=== PATIENT | female | born 1930 | race Caucasian/White ===

== ENCOUNTER 2016-10-30 12:27 | Emergency (ER) | payer MEDICARE, OTHER ==
[2016-10-30] MEDS ORDERED: Sodium Chloride 0.9% 10 ML Syringe FLUSH PRN (12:32)
[2016-10-30] MEDS ORDERED: Nitroglycerin 0.4 MG Tab.SL SL ONE (12:42)
--- NOTE | 2016-10-30 13:17 | CR ---
Portable chest Comparison: March 2013. The patient has known chronic interstitial fibrosis. The interstitial markings have increased since the prior study. There is cardiac enlargement. There is mild vascular engorgement. There are no pleu ral effusions. Impression: 1. Progression of interstitial fibrosis. Superimposed interstitial edema with CHF cannot be excluded .
--- NOTE | 2016-10-30 13:56 | EDM.PDOC ---
ED HPI GENERAL MEDICAL PROBLEM - General Chief Complaint: Cardiovascular Problem Stated Complaint: CHEST PAIN/PRESSURE Time Seen by Provider: 10/30/16 13:51 Source of Information: Reports: Patient, Family, Old Records History Limitations: Reports: No Limitations - History of Present Illness INITIAL COMMENTS - FREE TEXT/NARRATIVE: pt had an episode of severe left sided chest pain last nite. She has been having some chest pain for the last 10days. It has never been as severe as last nite. Onset: Today Duration: Hour(s):, Other (pt woke up with severe pain in th left ches. At this time her pain is just a slight pressure/ ) Location: Reports: Chest Quality: Reports: Pressure Severity: Mild Associated Symptoms: Reports: Shortness of Breath, Other ( chest pressure) - Related Data Allergies Allergy/AdvReac Type Severity Reaction Status Date / Time amoxicillin [Amoxicillin] Allergy Hives Verified 03/23/13 11:53 metronidazole [From Flagyl] Allergy Abdominal Verified 03/23/13 11:53 Pain Metronidazole HCl Allergy Abdominal Verified 03/23/13 11:53 [From Flagyl] Pain Penicillins Allergy Rash Verified 03/23/13 11:53 Sulfa (Sulfonamide Allergy Hives Verified 03/23/13 11:53 Antibiotics) nitroglycerin AdvReac Headache Verified 03/23/13 13:05 Home Meds: Home Meds Atenolol [Tenormin] 50 mg PO DAILY 03/23/13 [History] Losartan Potassium 50 mg PO DAILY 10/30/16 [History] Past Medical History Cardiovascular History: Reports: Hypertension Respiratory History: Reports: Pneumonia, 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: Musculoskeletal History: Reports: Other (See Below) Other Musculoskeletal History: scolosis Hematologic History: Reports: Anemia - Infectious Disease History Infectious Disease History: Reports: Chicken Pox, Measles, Mumps - Past Surgical History HEENT Surgical History: Reports: Cataract Surgery GI Surgical History: Reports: Appendectomy, Cholecystectomy, Hernia Repair/Other Female Surgical History: Reports: Hysterectomy, Other (See Below) Other Female Surgeries/Procedures: "cleaned out urinary tubes" Social & Family History - Tobacco Use Smoking Status *Q: Never Smoker Second Hand Smoke Exposure: No - Caffeine Use Caffeine Use: Reports: Coffee - Alcohol Use Days Per Week of Alcohol Use: 0 - Recreational Drug Use Recreational Drug Use: No ED ROS GENERAL - Review of Systems Review Of Systems: See Below Constitutional: Reports: No Symptoms HEENT: Reports: No Symptoms Respiratory: Reports: Shortness of Breath, Other ( breathing has been more difficult in the last 10 days, She has had slight leg swelling. ) Cardiovascular: Reports: Chest Pain, Dyspnea on Exertion, Orthopnea Endocrine: Reports: No Symptoms GI/Abdominal: Reports: No Symptoms : Reports: No Symptoms Musculoskeletal: Reports: No Symptoms Skin: Reports: No Symptoms ED EXAM, GENERAL - Physical Exam Exam: See Below Free Text/Narrative:: pt arrived with a history of left sided chest pain. She has had increased sob. She had a abnormal ekg at the clinic today. She has a history of cad, interstial pulmomnary disease, . Exam Limited By: No Limitations General Appearance: Alert, Mild Distress Ears: Normal TMs Nose: Normal Inspection Throat/Mouth: Normal Inspection Head: Atraumatic Neck: Normal Inspection Respiratory/Chest: Decreased Breath Sounds, Rales, Wheezing Cardiovascular: Regular Rate, Rhythm, No Murmur GI/Abdominal: Soft, Non-Tender (Female) Exam: Deferred Rectal (Female) Exam: Deferred Back Exam: Normal Inspection Extremities: Pedal Edema Neurological: Alert, Oriented, Normal Cognition Course - Vital Signs Last Recorded V/S: Last Vital Signs Temp 36.4 C 10/30/16 12:34 Pulse 96 10/30/16 12:34 Resp 16 10/30/16 12:34 BP 185/76 H 10/30/16 12:34 Pulse Ox 95 10/30/16 12:34 - Orders/Labs/Meds Orders: Active Orders 24 hr Category Date Time Status EKG Documentation Completion [RC] ASDIRECTED Care 10/30/16 12:30 Active CULTURE URINE [RM] Stat Lab 10/30/16 13:44 Uncollected Sodium Chloride 0.9% [Saline Flush] Med 10/30/16 12:32 Active 10 ml FLUSH ASDIRECTED PRN Saline Lock Insert [OM.PC] Routine Oth 10/30/16 12:32 Ordered EKG 12 Lead [EK] Routine Ther 10/30/16 12:30 Ordered Medication Orders Sodium Chloride (Saline Flush) 10 ml FLUSH ASDIRECTED PRN PRN Reason: Keep Vein Open Last Admin: 10/30/16 12:54 Dose: 10 ml Labs: Laboratory Tests 0710/30/16 10/30/16 Range/Units 12:50 12:55 12:55 WBC 6.4 (4.5-11.0) K/uL RBC 4.79 (3.30-5.50) M/uL Hgb 13.8 (12.0-15.0) g/dL Hct 41.4 (36.0-48.0) % MCV 86 (80-98) fL MCH 29 (27-31) pg MCHC 33 (32-36) % Plt Count 220 (150-400) K/uL Neut % (Auto) 62 (36-66) % Lymph % (Auto) 27 (24-44) % [place] % (Auto) 8 H (2-6) % Eos % (Auto) 2 (2-4) % Baso % (Auto) 1 (0-1) % Sodium (140-148) mmol/L Potassium (3.6-5.2) mmol/L Chloride (100-108) mmol/L Carbon Dioxide (21-32) mmol/L Anion Gap (5.0-14.0) mmol/L BUN (7-18) mg/dL Creatinine (0.6-1.0) mg/dL Est Cr Clr Drug Dosing mL/min Estimated GFR (MDRD) (>60) Glucose (74-106) mg/dL Calcium (8.5-10.1) mg/dL Total Bilirubin (0.2-1.0) mg/dL AST (15-37) U/L ALT (12-78) U/L Alkaline Phosphatase (46-116) U/L Creatine Kinase (26-192) U/L Troponin I 0.476 H* (0.000-0.056) ng/mL [id number] Pept 29091 H (5-450) pg/mL Total Protein (6.4-8.2) g/dL Albumin (3.4-5.0) g/dL Globulin (2.3-3.5) g/dL Albumin/Globulin Ratio (1.2-2.2) Urine Color Urine Appearance Urine pH (4.5-8.0) Ur Specific [place] (1.008-1.030) Urine Protein (NEGATIVE) mg/dL Urine Glucose (UA) (NEGATIVE) mg/dL Urine Ketones (NEGATIVE) mg/dL Urine Occult Blood (NEGATIVE) Urine Nitrite (NEGATIVE) Urine Bilirubin (NEGATIVE) Urine Urobilinogen (NORMAL) mg/dL Ur Leukocyte Esterase (NEGATIVE) Urine RBC (0-5) Urine WBC (0-5) Ur Epithelial Cells Amorphous Sediment Urine Bacteria Urine Mucus 10/30/16 10/30/16 Range/Units 12:55 13:31 WBC (4.5-11.0) K/uL RBC (3.30-5.50) M/uL Hgb (12.0-15.0) g/dL Hct (36.0-48.0) % MCV (80-98) fL MCH (27-31) pg MCHC (32-36) % Plt Count (150-400) K/uL Neut % (Auto) (36-66) % Lymph % (Auto) (24-44) % [place] % (Auto) (2-6) % Eos % (Auto) (2-4) % Baso % (Auto) (0-1) % Sodium 133 L (140-148) mmol/L Potassium 3.7 (3.6-5.2) mmol/L Chloride 97 L (100-108) mmol/L Carbon Dioxide 31 (21-32) mmol/L Anion Gap 8.7 (5.0-14.0) mmol/L BUN 16 (7-18) mg/dL Creatinine 1.0 (0.6-1.0) mg/dL Est Cr Clr Drug Dosing 29.54 mL/min Estimated GFR (MDRD) 53 L (>60) Glucose 135 H (74-106) mg/dL Calcium 8.9 (8.5-10.1) mg/dL Total Bilirubin 0.6 (0.2-1.0) mg/dL AST 28 (15-37) U/L ALT 18 (12-78) U/L Alkaline Phosphatase 83 (46-116) U/L Creatine Kinase 64 (26-192) U/L Troponin I (0.000-0.056) ng/mL Okv-E-Pjzbqsvfneo Pept (5-450) pg/mL Total Protein 7.6 (6.4-8.2) g/dL Albumin 3.3 L (3.4-5.0) g/dL Globulin 4.3 H (2.3-3.5) g/dL Albumin/Globulin Ratio 0.8 L (1.2-2.2) Urine Color Yellow Urine Appearance Cloudy Urine pH 8.0 (4.5-8.0) Ur Specific [place] 1.010 (1.008-1.030) Urine Protein Negative (NEGATIVE) mg/dL Urine Glucose (UA) Normal (NEGATIVE) mg/dL Urine Ketones Negative (NEGATIVE) mg/dL Urine Occult Blood Moderate (NEGATIVE) Urine Nitrite Negative (NEGATIVE) Urine Bilirubin Negative (NEGATIVE) Urine Urobilinogen Normal (NORMAL) mg/dL Ur Leukocyte Esterase Large (NEGATIVE) Urine RBC 5-10 H (0-5) Urine WBC 50-75 H (0-5) Ur Epithelial Cells Few Amorphous Sediment Rare Urine Bacteria Few Urine Mucus Rare Meds: Medications Generic Name Dose Route Start Last Admin Trade Name Freq PRN Reason Stop Dose Admin Sodium Chloride 10 ml 10/30/16 12:32 10/30/16 12:54 Saline Flush FLUSH 10 ml ASDIRECTED PRN Administration Keep Vein Open Discontinued Medications Generic Name Dose Route Start Last Admin Trade Name Freq PRN Reason Stop Dose Admin Nitroglycerin 0.4 mg 10/30/16 12:42 Nitrostat SL 10/30/16 12:43 ONETIME ONE - Re-Assessments/Exams Free Text/Narrative Re-Assessment/Exam: 10/30/16 14:06 pt was found to have acute ekg changes. She was given baby asa at the clinic. Pt does not do well with nitro so that was not given because she just had slight pressure. 10/30/16 14:14 pt had a trop of greater than .4 Her chest xray showed chf. Her bnp is high. Departure - Departure Time of Disposition: 14:16 Disposition: DC/Tfer to Acute Hospital 02 Reason for Transfer *Q: Primary PCI Indicated Condition: Fair Clinical Impression: Acute anteroseptal myocardial infarction, CHF (congestive heart failure), Interstitial lung disease, CAD (coronary artery disease), Diastolic dysfunction Forms: ED Department Discharge Care Plan Goals: transfer to [facility]. - My Orders Last 24 Hours: My Active Orders 10/30/16 12:30 EKG Documentation Completion [RC] ASDIRECTED EKG 12 Lead [EK] Routine 10/30/16 12:32 Sodium Chloride 0.9% [Saline Flush] 10 ml FLUSH ASDIRECTED PRN Saline Lock Insert [OM.PC] Routine 10/30/16 13:44 CULTURE URINE [RM] Stat - Assessment/Plan Last 24 Hours: My Active Orders 10/30/16 12:30 EKG Documentation Completion [RC] ASDIRECTED EKG 12 Lead [EK] Routine 10/30/16 12:32 Sodium Chloride 0.9% [Saline Flush] 10 ml FLUSH ASDIRECTED PRN Saline Lock Insert [OM.PC] Routine 10/30/16 13:44 CULTURE URINE [RM] Stat
[2016-10-30] MEDS ORDERED: Furosemide 40 MG/4 ML VIAL IVPUSH ONE (14:03)
[2016-10-30] MEDS ORDERED: Clopidogrel 75 MG Tab PO ONE (14:04)
[2016-10-30] MEDS ORDERED: Heparin Sodium 5,000 Units/ML Vial IVPUSH ONE (14:05)
[2016-10-30 14:50] VITALS: BP 190/114
== END 2016-10-30 14:45 ==
LOC: JP.ED 12:27
DX: I21.09 ST elevation (STEMI) myocardial infarction involving other coronary artery of anterior wall (principal); I10 Essential (primary) hypertension; J84.9 Interstitial pulmonary disease, unspecified; I25.10 Atherosclerotic heart disease of native coronary artery without angina pectoris; I50.30 Unspecified diastolic (congestive) heart failure; Z88.8 Allergy status to other drugs, medicaments and biological substances; Z79.899 Other long term (current) drug therapy
CPT/HCPCS: 36415; 71010; 80053; 81001; 82550; 83880; 84484; 85025; 85730; 87086; 93005; A9270; J1644; J1940; J7050; 87088; 87186; 93010; 96374; 96375; 99285; 99285-25

== ENCOUNTER 2016-11-08 07:51 | Emergency (ER) | payer MEDICARE, OTHER ==
[2016-11-08] MEDS ORDERED: HYDROmorphone 0.5 MG/0.5 ML Syringe IM ONE (08:27)
--- NOTE | 2016-11-08 08:33 | EDM.PDOC ---
ED HPI GENERAL MEDICAL PROBLEM - General Chief Complaint: Upper Extremity Injury/Pain Stated Complaint: RT ARM PAIN Time Seen by Provider: 11/08/16 08:28 Source of Information: Reports: Patient, Family History Limitations: Reports: No Limitations - History of Present Illness INITIAL COMMENTS - FREE TEXT/NARRATIVE: pt has severe pain in the rt wrist and arm. She had a angiogram 1 week ago. She was in the hosp until sat. She was doing well until this started in the nite. Onset: Today Duration: Hour(s): Location: Reports: Upper Extremity, Right Associated Symptoms: Reports: Shortness of Breath Right Arm Pain Score (Numeric/FACES): 10 - Related Data Allergies Allergy/AdvReac Type Severity Reaction Status Date / Time amoxicillin [Amoxicillin] Allergy Hives Verified 11/08/16 08:07 metronidazole [From Flagyl] Allergy Abdominal Verified 11/08/16 08:07 Pain Metronidazole HCl Allergy Abdominal Verified 11/08/16 08:07 [From Flagyl] Pain Penicillins Allergy Rash Verified 11/08/16 08:07 Sulfa (Sulfonamide Allergy Hives Verified 11/08/16 08:07 Antibiotics) nitroglycerin AdvReac Headache Verified 11/08/16 08:07 Home Meds: Home Meds Aspirin [Halfprin] 1 tab PO DAILY 11/08/16 [History] Furosemide 1 tab PO DAILY 11/08/16 [History] Metoprolol Succinate [Toprol XL] 1 tab PO DAILY 11/08/16 [History] Ticagrelor [Brilinta] 1 tab PO BID 11/08/16 [History] atorvaSTATin [Lipitor] 1 tab PO BEDTIME 11/08/16 [History] Past Medical History HEENT History: Reports: Cataract Cardiovascular History: Reports: CAD, High Cholesterol, Hypertension, [place], Stents Respiratory History: Reports: Pneumonia, 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: , 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 Musculoskeletal History: Reports: Other (See Below) Other Musculoskeletal History: scoliosis Hematologic History: Reports: Anemia - Infectious Disease History Infectious Disease History: Reports: Chicken Pox, Measles, Mumps - Past Surgical History HEENT Surgical History: Reports: Cataract Surgery Cardiovascular Surgical History: Reports: Coronary Artery Stent GI Surgical History: Reports: Appendectomy, Cholecystectomy, Hernia Repair/Other Female Surgical History: Reports: Hysterectomy, Tubal Ligation, Other (See Below) Other Female Surgeries/Procedures: "cleaned out urinary tubes" Social & Family History - Tobacco Use Smoking Status *Q: Never Smoker Second Hand Smoke Exposure: No - Caffeine Use Caffeine Use: Reports: Coffee - Alcohol Use Days Per Week of Alcohol Use: 0 - Recreational Drug Use Recreational Drug Use: No Review of Systems - Review of Systems Review Of Systems: See Below Constitutional: Reports: No Symptoms Eyes: Reports: No Symptoms Ears: Reports: No Symptoms Nose: Reports: No Symptoms Mouth/Throat: Reports: No Symptoms Respiratory: Reports: Shortness of Breath, Other (pt has not had chest pain but has been very sob since she had the stents plced. ) Cardiovascular: Reports: No Symptoms GI/Abdominal: Reports: No Symptoms Genitourinary: Reports: No Symptoms Musculoskeletal: Reports: No Symptoms, Other (pt has severe pain in the rt arm which started in the nite. ) Skin: Reports: No Symptoms Neurological: Reports: No Symptoms ED EXAM, GENERAL - Physical Exam Exam: See Below Free Text/Narrative:: pt has severe pain in the left arm which started in the nite. This is at the wrist level. She had a IV started at the wrist about 1 week ago when she had stents placed. She had no trouble until in the nite. Exam Limited By: No Limitations General Appearance: Alert, Moderate Distress Ears: Normal TMs Nose: Normal Inspection Throat/Mouth: Normal Inspection Head: Atraumatic Neck: Normal Inspection Respiratory/Chest: Rales, Other ( just a few rales at the lung bases. ) Cardiovascular: Regular Rate, Rhythm GI/Abdominal: Soft, Non-Tender (Female) Exam: Deferred Rectal (Female) Exam: Deferred Back Exam: Normal Inspection Extremities: Other ( rt arm is quite bruised. She has minimal swelling. She has a good pulse at the wrist level. ) Neurological: Alert, Oriented, Normal Cognition Course - Vital Signs Last Recorded V/S: Last Vital Signs Temp 36.7 C 11/08/16 09:40 Pulse 79 11/08/16 10:08 Resp 16 11/08/16 09:40 BP 123/60 11/08/16 10:08 Pulse Ox 92 L 11/08/16 10:08 - Orders/Labs/Meds Orders: Active Orders 24 hr Category Date Time Status VL Duplex Upr Ext Veins Ltd Rt [US] Stat Exams 11/08/16 08:25 Taken Labs: Laboratory Tests 11/08/16 11/08/16 Range/Units 09:25 09:25 WBC 10.4 (4.5-11.0) K/uL RBC 4.67 (3.30-5.50) M/uL Hgb 13.5 (12.0-15.0) g/dL Hct 39.3 (36.0-48.0) % MCV 84 (80-98) fL MCH 29 (27-31) pg MCHC 34 (32-36) % Plt Count 270 (150-400) K/uL Neut % (Auto) 78 H (36-66) % Lymph % (Auto) 11 L (24-44) % [place] % (Auto) 9 H (2-6) % Eos % (Auto) 1 L (2-4) % Baso % (Auto) 1 (0-1) % Sodium 129 L (140-148) mmol/L Potassium 3.7 (3.6-5.2) mmol/L Chloride 93 L (100-108) mmol/L Carbon Dioxide 29 (21-32) mmol/L Anion Gap 10.7 (5.0-14.0) mmol/L BUN 21 H (7-18) mg/dL Creatinine 1.1 H (0.6-1.0) mg/dL Est Cr Clr Drug Dosing 26.86 mL/min Estimated GFR (MDRD) 47 L (>60) Glucose 105 (74-106) mg/dL Calcium 9.0 (8.5-10.1) mg/dL Total Bilirubin 1.0 D (0.2-1.0) mg/dL AST 28 (15-37) U/L ALT 28 (12-78) U/L Alkaline Phosphatase 83 (46-116) U/L Total Protein 7.5 (6.4-8.2) g/dL Albumin 2.9 L (3.4-5.0) g/dL Globulin 4.6 H (2.3-3.5) g/dL Albumin/Globulin Ratio 0.6 L (1.2-2.2) Meds: Medications Discontinued Medications Generic Name Dose Route Start Last Admin Trade Name Freq PRN Reason Stop Dose Admin Hydrocodone Bitart/Acetaminophen 1 tab 11/08/16 09:46 11/08/16 10:05 [place] 325-5 Mg PO 11/08/16 09:47 1 tab ONETIME ONE Administration Furosemide 60 mg 11/08/16 09:45 Lasix IVPUSH 11/08/16 09:46 ONETIME ONE Furosemide 60 mg 11/08/16 09:58 11/08/16 10:06 Lasix IM 11/08/16 09:59 60 mg ONETIME ONE Administration Hydromorphone HCl 0.5 mg 11/08/16 08:27 11/08/16 08:47 Dilaudid IM 11/08/16 08:28 0.5 mg ONETIME ONE Administration - Re-Assessments/Exams Free Text/Narrative Re-Assessment/Exam: 11/08/16 09:37 us was done on the pt which id not reveal a clot in the arm. She does have an excellent pulse. She is very sensitive in the iv start site. She has some numbness in her fingers. It would appear there is some swelling around a nerve. 11/08/16 09:38 11/08/16 10:48 Pt had extra fluid in her chest. She has been quite sob. She was given lasix 60mg im. She has been on 40 mg daily. She has a follow up appt in [place] on saturday. Departure - Departure Time of Disposition: 10:49 Disposition: Home, Self-Care 01 Condition: Fair Clinical Impression: Irritation of radial nerve, CHF (congestive heart failure) - Discharge Information Referrals: Delroy Ny PA-C [Primary Care Provider] - Forms: ED Department Discharge Care Plan Goals: Soak the wrist tid and do range of motion of the hand--= soak for 20min each time. Increase lasix to 1 and1/2 tablets each morning starting tomorrow--60 mg. keep follow up appt saturday in [facility] 1/2 to 1 tab q6h as needed for pain, use prunes and stool softners to prevent constipation. - My Orders Last 24 Hours: My Active Orders 11/08/16 08:25 VL Duplex Upr Ext Veins Ltd Rt [US] Stat - Assessment/Plan Last 24 Hours: My Active Orders 11/08/16 08:25 VL Duplex Upr Ext Veins Ltd Rt [US] Stat
[2016-11-08] MEDS ORDERED: Furosemide 40 MG/4 ML VIAL IVPUSH ONE (09:45)
[2016-11-08] MEDS ORDERED: Acetaminophen/HYDROcodone 325-5 MG Tab PO ONE (09:46)
--- NOTE | 2016-11-08 09:46 | CR ---
Mild cardio mainly. Low lung volumes. No definite focal consolidation. Mild linear interstitial proc ess is increased. Findings may indicate mild interstitial edema. Fibrosis could contribute.
[2016-11-08] MEDS ORDERED: Furosemide 40 MG/4 ML VIAL IM ONE (09:58)
[2016-11-08 10:08] VITALS: BP 123/60
--- NOTE | 2016-11-08 12:40 | US ---
No evidence for DVT right upper extremity. Basilic and brachial veins Limited.
== END 2016-11-08 11:28 | disposition home or self-care (01) ==
LOC: JP.ED 07:51
DX: G56.31 Lesion of radial nerve, right upper limb (principal); I11.0 Hypertensive heart disease with heart failure; I50.9 Heart failure, unspecified; I25.2 Old myocardial infarction; I25.10 Atherosclerotic heart disease of native coronary artery without angina pectoris; E78.00 Pure hypercholesterolemia, unspecified; Z87.01 Personal history of pneumonia (recurrent); Z86.2 Personal history of diseases of the blood and blood-forming organs and certain disorders involving the immune mechanism; Z95.5 Presence of coronary angioplasty implant and graft; Z90.49 Acquired absence of other specified parts of digestive tract; Z98.890 Other specified postprocedural states; Z79.82 Long term (current) use of aspirin; Z79.899 Other long term (current) drug therapy; Z88.1 Allergy status to other antibiotic agents; Z88.0 Allergy status to penicillin; Z88.2 Allergy status to sulfonamides; Z88.8 Allergy status to other drugs, medicaments and biological substances
CPT/HCPCS: 36415; 71010; 80053; 85025; 93971; 96372; 96374; 99284; A9270; J1170; J1940; 99283

== ENCOUNTER 2017-12-31 18:11 | Inpatient (IN) | payer MEDICARE, OTHER ==
[2017-12-31] MEDS ORDERED: Albuterol 0.083% 2.5 MG/3 ML Neb Soln NEB ONE (18:46)
[2017-12-31] MEDS ORDERED: Furosemide 40 MG/4 ML VIAL IVPUSH ONE (18:57)
--- NOTE | 2017-12-31 19:01 | EDM.PDOC ---
ED HPI GENERAL MEDICAL PROBLEM - General Chief Complaint: Respiratory Problem Stated Complaint: SOB Time Seen by Provider: 12/31/17 19:01 Source of Information: Reports: Patient History Limitations: Reports: No Limitations - History of Present Illness INITIAL COMMENTS - FREE TEXT/NARRATIVE: pt arrived with sob and difficulty sleeping at nite. She states this started last nite and has gotten progressively worse. She has not had chest pain. She has noted increased swelling in her ankles and legs. She ran out of her lasix about 5 days ago. Onset: Today (sob stared yesterday. ), Other ( started yesterday. ) Duration: Hour(s): Location: Reports: Chest, Lower Extremity, Left, Lower Extremity, Right Associated Symptoms: Reports: Cough, Fever/Chills, Shortness of Breath Denies Pain Score (Numeric/FACES): 0 - Related Data Allergies Allergy/AdvReac Type Severity Reaction Status Date / Time amoxicillin [Amoxicillin] Allergy Hives Verified 12/31/17 18:16 metronidazole [From Flagyl] Allergy Abdominal Verified 12/31/17 18:16 Pain Metronidazole HCl Allergy Abdominal Verified 12/31/17 18:16 [From Flagyl] Pain Penicillins Allergy Rash Verified 12/31/17 18:16 Sulfa (Sulfonamide Allergy Hives Verified 12/31/17 18:16 Antibiotics) nitroglycerin AdvReac Headache Verified 12/31/17 18:16 Home Meds: Home Meds Aspirin [Halfprin] 1 tab PO DAILY 11/08/16 [History] Clopidogrel Bisulfate [Clopidogrel] 1 tab PO DAILY 12/31/17 [History] Losartan [Cozaar] 1 tab PO BEDTIME 12/31/17 [History] predniSONE [Prednisone] 1 tab PO DAILY 12/31/17 [History] Past Medical History HEENT History: Reports: Cataract Cardiovascular History: Reports: CAD, High Cholesterol, Hypertension, MA, Stents Respiratory History: Reports: Pneumonia, Recurrent [employer] History: Reports: , Spontaneous Musculoskeletal History: Reports: Other (See Below) Other Musculoskeletal History: scoliosis Hematologic History: Reports: Anemia - Infectious Disease History Infectious Disease History: Reports: Chicken Pox, Measles, Mumps - Past Surgical History HEENT Surgical History: Reports: Cataract Surgery Cardiovascular Surgical History: Reports: Coronary Artery Stent GI Surgical History: Reports: Appendectomy, Cholecystectomy, Hernia Repair/Other Female Surgical History: Reports: Hysterectomy, Tubal Ligation, Other (See Below) Other Female Surgeries/Procedures: "cleaned out urinary tubes" Social & Family History - Tobacco Use Smoking Status *Q: Never Smoker Second Hand Smoke Exposure: No - Caffeine Use Caffeine Use: Reports: Coffee - Recreational Drug Use Recreational Drug Use: No ED ROS GENERAL - Review of Systems Review Of Systems: See Below Constitutional: Reports: Fever, Chills, Diaphoresis HEENT: Reports: No Symptoms Respiratory: Reports: Shortness of Breath, Cough, Other (pt has no chest pain.) Cardiovascular: Reports: No Symptoms, Dyspnea on Exertion, Edema Endocrine: Reports: No Symptoms GI/Abdominal: Reports: No Symptoms : Reports: No Symptoms Musculoskeletal: Reports: No Symptoms Skin: Reports: No Symptoms Neurological: Reports: No Symptoms Psychiatric: Reports: Anxiety ED EXAM, GENERAL - Physical Exam Exam: See Below Free Text/Narrative:: pt arrived with sob and increased ankle swelling. She did spike a temp today. She has no pain with deep breathing. Exam Limited By: No Limitations General Appearance: Alert, Anxious, Moderate Distress, Other (o2 sats are low) Ears: Normal TMs Nose: Normal Inspection Throat/Mouth: Normal Inspection Head: Atraumatic Neck: Normal Inspection Respiratory/Chest: Decreased Breath Sounds, Crackles, Rales, Other ( rapid resp. ) Cardiovascular: Regular Rate, Rhythm GI/Abdominal: Soft, Non-Tender (Female) Exam: Deferred Rectal (Female) Exam: Deferred Back Exam: Normal Inspection Extremities: Pedal Edema, Other (pt has plus 2 pitting edema. ) Neurological: Alert, Oriented, Normal Cognition Course - Vital Signs Last Recorded V/S: Last Vital Signs Temp 38.7 C H 12/31/17 18:35 Pulse 101 H 12/31/17 18:35 Resp 32 H 12/31/17 18:35 BP 141/89 H 12/31/17 19:12 Pulse Ox 91 L 12/31/17 18:35 - Orders/Labs/Meds Orders: Active Orders 24 hr Category Date Time Status RT Aerosol Therapy [RC] ASDIRECTED Care 12/31/17 18:46 Active Chest 1V Frontal [CR] Stat Exams 12/31/17 18:31 Taken CULTURE BLOOD [BC] Urgent Lab 12/31/17 18:50 Received CULTURE BLOOD [BC] Urgent Lab 12/31/17 18:55 Received UA W/MICROSCOPIC [URIN] Urgent Lab 12/31/17 18:29 Ordered Sodium Chloride 0.9% [Saline Flush] Med 12/31/17 18:47 Active 10 ml FLUSH ASDIRECTED PRN Blood Culture x2 Reflex Set [OM.PC] Urgent Oth 12/31/17 18:32 Ordered Saline Lock Insert [OM.PC] Routine Oth 12/31/17 18:47 Ordered Medication Orders Sodium Chloride (Saline Flush) 10 ml FLUSH ASDIRECTED PRN PRN Reason: Keep Vein Open Last Admin: 12/31/17 19:14 Dose: 10 ml Labs: Laboratory Tests 12/31/17 12/31/17 12/31/17 Range/Units 18:29 18:40 18:40 WBC 6.7 (4.5-11.0) K/uL RBC 4.66 (3.30-5.50) M/uL Hgb 12.8 (12.0-15.0) g/dL Hct 39.0 (36.0-48.0) % MCV 84 (80-98) fL MCH 28 (27-31) pg MCHC 33 (32-36) % Plt Count 278 (150-400) K/uL Neut % (Auto) 65 (36-66) % Lymph % (Auto) 23 L (24-44) % [place] % (Auto) 9 H (2-6) % Eos % (Auto) 3 (2-4) % Baso % (Auto) 0 (0-1) % Puncture Site Rt radial ABG pH 7.463 H (7.350-7.450) ABG pCO2 35.3 (35.0-42.0) mmHg ABG pO2 74.2 L (75.0-100.0) mmHg ABG HCO3 24.9 (22.0-26.0) mmol/L ABG Total CO2 22.0 (21.0-25.0) mmol/L ABG O2 Saturation 95.5 (95.0-98.0) % ABG O2 Content 17.0 (15.0-23.0) %vol ABG Base Excess 1.9 mm/L ABG Hemoglobin 12.9 (12.0-16.0) g/dL ABG Oxyhemoglobin 94.0 % ABG Carboxyhemoglobin 1.1 (0.0-1.6) % ABG Methemoglobin 0.5 % Estuardo Test Pass O2 Delivery Device Nasal cannula Oxygen Flow Rate L Sodium 131 L (140-148) mmol/L Potassium 4.2 (3.6-5.2) mmol/L Chloride 95 L (100-108) mmol/L Carbon Dioxide 29 (21-32) mmol/L Anion Gap 11.2 (5.0-14.0) mmol/L BUN 21 H (7-18) mg/dL Creatinine 1.1 H (0.6-1.0) mg/dL Est Cr Clr Drug Dosing 26.37 mL/min Estimated GFR (MDRD) 47 L (>60) Glucose 121 H (74-106) mg/dL Calcium 8.7 (8.5-10.1) mg/dL Total Bilirubin 0.5 (0.2-1.0) mg/dL AST 21 (15-37) U/L ALT 19 (12-78) U/L Alkaline Phosphatase 67 (46-116) U/L C-Reactive Protein (0.0-0.3) mg/dL NT-Pro-B Natriuret Pep (5-450) pg/mL Total Protein 6.4 (6.4-8.2) g/dL Albumin 2.9 L (3.4-5.0) g/dL Globulin 3.5 (2.3-3.5) g/dL Albumin/Globulin Ratio 0.8 L (1.2-2.2) 12/31/17 12/31/17 Range/Units 18:45 18:49 WBC (4.5-11.0) K/uL RBC (3.30-5.50) M/uL Hgb (12.0-15.0) g/dL Hct (36.0-48.0) % MCV (80-98) fL MCH (27-31) pg MCHC (32-36) % Plt Count (150-400) K/uL Neut % (Auto) (36-66) % Lymph % (Auto) (24-44) % [place] % (Auto) (2-6) % Eos % (Auto) (2-4) % Baso % (Auto) (0-1) % Puncture Site ABG pH (7.350-7.450) ABG pCO2 (35.0-42.0) mmHg ABG pO2 (75.0-100.0) mmHg ABG HCO3 (22.0-26.0) mmol/L ABG Total CO2 (21.0-25.0) mmol/L ABG O2 Saturation (95.0-98.0) % ABG O2 Content (15.0-23.0) %vol ABG Base Excess mm/L ABG Hemoglobin (12.0-16.0) g/dL ABG Oxyhemoglobin % ABG Carboxyhemoglobin (0.0-1.6) % ABG Methemoglobin % Estuardo Test O2 Delivery Device Oxygen Flow Rate L Sodium (140-148) mmol/L Potassium (3.6-5.2) mmol/L Chloride (100-108) mmol/L Carbon Dioxide (21-32) mmol/L Anion Gap (5.0-14.0) mmol/L BUN (7-18) mg/dL Creatinine (0.6-1.0) mg/dL Est Cr Clr Drug Dosing mL/min Estimated GFR (MDRD) (>60) Glucose (74-106) mg/dL Calcium (8.5-10.1) mg/dL Total Bilirubin (0.2-1.0) mg/dL AST (15-37) U/L ALT (12-78) U/L Alkaline Phosphatase (46-116) U/L C-Reactive Protein 0.94 H (0.0-0.3) mg/dL NT-Pro-B Natriuret Pep 77027 H (5-450) pg/mL Total Protein (6.4-8.2) g/dL Albumin (3.4-5.0) g/dL Globulin (2.3-3.5) g/dL Albumin/Globulin Ratio (1.2-2.2) Meds: Medications Generic Name Dose Route Start Last Admin Trade Name Freq PRN Reason Stop Dose Admin Sodium Chloride 10 ml 12/31/17 18:47 12/31/17 19:14 Saline Flush FLUSH 10 ml ASDIRECTED PRN Administration Keep Vein Open Discontinued Medications Generic Name Dose Route Start Last Admin Trade Name Freq PRN Reason Stop Dose Admin Albuterol 2.5 mg 12/31/17 18:46 12/31/17 19:11 Proventil Neb Soln NEB 12/31/17 18:47 2.5 mg ONETIME ONE Administration Furosemide 60 mg 12/31/17 18:57 12/31/17 19:12 Lasix IVPUSH 12/31/17 18:58 60 mg ONETIME ONE Administration - Re-Assessments/Exams Free Text/Narrative Re-Assessment/Exam: 12/31/17 19:26 chest xray shows alot of extra fluid. She does have a fever but no elevated wbc. Her bnp is greater than 13,000. Pt was given 60 mg of lasix iv. A banks cath was inserted. 12/31/17 19:27 Departure - Departure Time of Disposition: 19:28 Disposition: Admitted As Inpatient 67 Condition: Fair Clinical Impression: CHF (congestive heart failure), Pneumonia - Discharge Information Referrals: Denise Salguero MD [Primary Care Provider] - Forms: ED Department Discharge Care Plan Goals: admit to [facility] and Dr Soto. - My Orders Last 24 Hours: My Active Orders 12/31/17 18:29 UA W/MICROSCOPIC [URIN] Urgent 12/31/17 18:31 Chest 1V Frontal [CR] Stat 12/31/17 18:32 Blood Culture x2 Reflex Set [OM.PC] Urgent 12/31/17 18:46 RT Aerosol Therapy [RC] ASDIRECTED 12/31/17 18:47 Sodium Chloride 0.9% [Saline Flush] 10 ml FLUSH ASDIRECTED PRN Saline Lock Insert [OM.PC] Routine 12/31/17 18:50 CULTURE BLOOD [BC] Urgent 12/31/17 18:55 CULTURE BLOOD [BC] Urgent - Assessment/Plan Last 24 Hours: My Active Orders 12/31/17 18:29 UA W/MICROSCOPIC [URIN] Urgent 12/31/17 18:31 Chest 1V Frontal [CR] Stat 12/31/17 18:32 Blood Culture x2 Reflex Set [OM.PC] Urgent 12/31/17 18:46 RT Aerosol Therapy [RC] ASDIRECTED 12/31/17 18:47 Sodium Chloride 0.9% [Saline Flush] 10 ml FLUSH ASDIRECTED PRN Saline Lock Insert [OM.PC] Routine 12/31/17 18:50 CULTURE BLOOD [BC] Urgent 12/31/17 18:55 CULTURE BLOOD [BC] Urgent
[2017-12-31] MEDS: Sodium Chloride 0.9% 10 ML Syringe FLUSH PRN (19:14)
[2017-12-31] MEDS ORDERED: Acetaminophen 325 MG Tab PO ONE (19:24)
[2017-12-31] MEDS ORDERED: cefTRIAXone 1 GM in Sodium Chloride 0.9% 50 ML IV ONE (20:17)
--- NOTE | 2017-12-31 20:57 | PCM.HP ---
H&P History of Present Illness - General Date of Service: 12/31/17 Admit Problem/Dx: Admission Diagnosis/Problem Admission Diagnosis/Problem Congestive heart failure Source of Information: Patient, Family (Daughter Jeanna Younger), Provider History Limitations: Reports: No Limitations - History of Present Illness Initial Comments - Free Text/Narative: Mrs. Petty arrived with sob and difficulty sleeping at nite. She states this started last night and has gotten progressively worse. She has not had chest pain. She has noted increased swelling in her ankles and legs. She ran out of her lasix about 5 days ago. Onset: sob started yesterday. Associated Symptoms: Reports: Cough, Fever/Chills, Shortness of Breath, lack of appetite, poor sleep x 2 nights Imaging: chest xray shows diffuse congestion. She does have a fever but no elevated wbc. Her Peo-BNP is greater than 13,000, given 60 mg of Lasix IV. Reynolds catheter was inserted, urinary output at 500ml clear yellow urine. plan to admit to Hospital for further care and treatment Condition: Fair Clinical Impression: CHF, Pneumonia Onset of Symptoms: Reports: Gradual Duration of Symptoms: Reports: Day(s): (two) Location: Reports: Chest, Generalized (weakness, fever, chills, poor appetite), Other (lower leg edema) Quality: Reports: Same as Previous Episode Severity: Severe Improves with: Reports: Medication (has not taken Lasix for 5 days) Worsens with: Reports: Movement Associated Symptoms: Reports: Cough, Fever/Chills, Loss of Appetite, Malaise, Shortness of Breath, Weakness Denies Pain Score (Numeric/FACES): 0 - Related Data Allergies/Adverse Reactions: Allergies Allergy/AdvReac Type Severity Reaction Status Date / Time amoxicillin [Amoxicillin] Allergy Hives Verified 12/31/17 18:16 metronidazole [From Flagyl] Allergy Abdominal Verified 12/31/17 18:16 Pain Metronidazole HCl Allergy Abdominal Verified 12/31/17 18:16 [From Flagyl] Pain Penicillins Allergy Rash Verified 12/31/17 18:16 Sulfa (Sulfonamide Allergy Hives Verified 12/31/17 18:16 Antibiotics) nitroglycerin AdvReac Headache Verified 12/31/17 18:16 Home Medications: Home Meds Aspirin [Halfprin] 1 tab PO DAILY 11/08/16 [History] Clopidogrel Bisulfate [Clopidogrel] 1 tab PO DAILY 12/31/17 [History] Losartan [Cozaar] 1 tab PO BEDTIME 12/31/17 [History] predniSONE [Prednisone] 1 tab PO DAILY 12/31/17 [History] Past Medical History HEENT History: Reports: Cataract Cardiovascular History: Reports: CAD, High Cholesterol, Hypertension, PA, Stents Respiratory History: Reports: Pneumonia, Recurrent 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: Reports: , Spontaneous Musculoskeletal History: Reports: Other (See Below) Other Musculoskeletal History: scoliosis Hematologic History: Reports: Anemia - Infectious Disease History Infectious Disease History: Reports: Chicken Pox, Measles, Mumps - Past Surgical History HEENT Surgical History: Reports: Cataract Surgery Cardiovascular Surgical History: Reports: Coronary Artery Stent GI Surgical History: Reports: Appendectomy, Cholecystectomy, Hernia Repair/Other Female Surgical History: Reports: Hysterectomy, Tubal Ligation, Other (See Below) Other Female Surgeries/Procedures: "cleaned out urinary tubes" Social & Family History - Tobacco Use Smoking Status *Q: Never Smoker Second Hand Smoke Exposure: No - Caffeine Use Caffeine Use: Reports: Coffee - Recreational Drug Use Recreational Drug Use: No - Living Situation & Occupation Living situation: Reports: , Alone Occupation: Retired ( of 66+ years in November after a lenghty illness , has 5 children, lives in [place] home across from her Daughter's [facility] Mobile home in [place], [place]. many extended family in area.) H&P Review of Systems - Review of Systems: Review Of Systems: See Below General: Reports: Fever, Chills, Malaise, Weakness, Fatigue, Night Sweats, Decreased Appetite HEENT: Reports: Glasses (for reading only) Pulmonary: Reports: Shortness of Breath, Wheezing, Cough, Sputum Cardiovascular: Reports: Dyspnea on Exertion, Orthopnea, Edema Gastrointestinal: Reports: No Symptoms Genitourinary: Reports: No Symptoms Musculoskeletal: Reports: Joint Pain (has arthritis in her joints causing discomfort), Muscle Pain Skin: Reports: No Symptoms Psychiatric: Reports: Other (reports doing well after 's , missing him, but its a comfort to her to know he is no longer suffering.) Neurological: Reports: Pre-Existing Deficit (ambulates with cane or walker due to balance issues) Hematologic/Lymphatic: Reports: No Symptoms Immunologic: Reports: No Symptoms Exam - Exam Exam: See Below - Vital Signs Vital Signs: Last Vital Signs Temp 38.7 C H 12/31/17 18:35 Pulse 89 12/31/17 19:19 Resp 24 H 12/31/17 19:19 BP 134/79 12/31/17 19:19 Pulse Ox 97 12/31/17 19:19 Weight: 53 kg - Exam Quality Assessment: Supplemental Oxygen, Urinary Catheter, DVT Prophylaxis General: Alert, Oriented, Cooperative, Mild Distress HEENT: PERRLA, Conjunctiva Clear, EACs Clear, EOMI, Hearing Intact, Mucosa Moist & [place], Nares Patent, Normal Nasal Septum, Posterior Pharynx Clear, Pupils Equal, Pupils Reactive, TMs Clear Neck: Supple, Trachea Midline Lungs: Crackles, Wheezing, Other (shortness of breath with speaking.) Cardiovascular: Regular Rate, Regular Rhythm GI/Abdominal Exam: Normal Bowel Sounds, Soft, Non-Tender, No Organomegaly, No Distention, No Abnormal Bruit, No Mass (Female) Exam: Normal External Exam Back Exam: Normal Inspection. No: Full Range of Motion (due to arthritis and spinal curvature. ) Extremities: Normal Inspection, Normal Range of Motion, Non-Tender, No Pedal Edema, Normal Capillary Refill, Other (lower leg cool, chronic per Mrs. Petty) Peripheral Pulses: 2+: Radial (L), Radial (R), Posterior Tibial (R), Dorsalis Pedis (L) Skin: Warm, Dry, Intact, Cool (feet cool, chronic) Neurological: Reflexes Equal Bilateral, Strength Equal Bilateral, Normal Speech , Normal Tone, Sensation Intact Neuro Extensive - Mental Status: Alert, Oriented x3, Normal Mood/Affect, Normal Cognition, Memory Intact Neuro Extensive - Motor, Sensory, Reflexes: Motor/Sensory Deficits (pre-existing ) Psychiatric: Alert, Normal Affect, Normal Mood - Patient Data Lab Results Last 24 hrs: Laboratory Results - last 24 hr 12/31/17 12/31/17 12/31/17 Range/Units 16:40 18:29 18:40 WBC 6.7 (4.5-11.0) K/uL RBC 4.66 (3.30-5.50) M/uL Hgb 12.8 (12.0-15.0) g/dL Hct 39.0 (36.0-48.0) % MCV 84 (80-98) fL MCH 28 (27-31) pg MCHC 33 (32-36) % Plt Count 278 (150-400) K/uL Neut % (Auto) 65 (36-66) % Lymph % (Auto) 23 L (24-44) % [place] % (Auto) 9 H (2-6) % Eos % (Auto) 3 (2-4) % Baso % (Auto) 0 (0-1) % Puncture Site ABG pH (7.350-7.450) ABG pCO2 (35.0-42.0) mmHg ABG pO2 (75.0-100.0) mmHg ABG HCO3 (22.0-26.0) mmol/L ABG Total CO2 (21.0-25.0) mmol/L ABG O2 Saturation (95.0-98.0) % ABG O2 Content (15.0-23.0) %vol ABG Base Excess mm/L ABG Hemoglobin (12.0-16.0) g/dL ABG Oxyhemoglobin % ABG Carboxyhemoglobin (0.0-1.6) % ABG Methemoglobin % Estuardo Test O2 Delivery Device Oxygen Flow Rate L Sodium 131 L (140-148) mmol/L Potassium 4.2 (3.6-5.2) mmol/L Chloride 95 L (100-108) mmol/L Carbon Dioxide 29 (21-32) mmol/L Anion Gap 11.2 (5.0-14.0) mmol/L BUN 21 H (7-18) mg/dL Creatinine 1.1 H (0.6-1.0) mg/dL Est Cr Clr Drug Dosing 26.37 mL/min Estimated GFR (MDRD) 47 L (>60) Glucose 121 H (74-106) mg/dL Lactic Acid 2.0 (0.4-2.0) mmol/L Calcium 8.7 (8.5-10.1) mg/dL Total Bilirubin 0.5 (0.2-1.0) mg/dL AST 21 (15-37) U/L ALT 19 (12-78) U/L Alkaline Phosphatase 67 (46-116) U/L C-Reactive Protein (0.0-0.3) mg/dL NT-Pro-B Natriuret Pep (5-450) pg/mL Total Protein 6.4 (6.4-8.2) g/dL Albumin 2.9 L (3.4-5.0) g/dL Globulin 3.5 (2.3-3.5) g/dL Albumin/Globulin Ratio 0.8 L (1.2-2.2) Urine Color Urine Appearance Urine pH (4.5-8.0) Ur Specific [place] (1.008-1.030) Urine Protein (NEGATIVE) mg/dL Urine Glucose (UA) (NEGATIVE) mg/dL Urine Ketones (NEGATIVE) mg/dL Urine Occult Blood (NEGATIVE) Urine Nitrite (NEGATIVE) Urine Bilirubin (NEGATIVE) Urine Urobilinogen (NORMAL) mg/dL Ur Leukocyte Esterase (NEGATIVE) Urine RBC (0-5) Urine WBC (0-5) Ur Epithelial Cells Amorphous Sediment Urine Bacteria Urine Mucus 12/31/17 12/31/17 12/31/17 Range/Units 18:40 18:45 18:49 WBC (4.5-11.0) K/uL RBC (3.30-5.50) M/uL Hgb (12.0-15.0) g/dL Hct (36.0-48.0) % MCV (80-98) fL MCH (27-31) pg MCHC (32-36) % Plt Count (150-400) K/uL Neut % (Auto) (36-66) % Lymph % (Auto) (24-44) % [place] % (Auto) (2-6) % Eos % (Auto) (2-4) % Baso % (Auto) (0-1) % Puncture Site Rt radial ABG pH 7.463 H (7.350-7.450) ABG pCO2 35.3 (35.0-42.0) mmHg ABG pO2 74.2 L (75.0-100.0) mmHg ABG HCO3 24.9 (22.0-26.0) mmol/L ABG Total CO2 22.0 (21.0-25.0) mmol/L ABG O2 Saturation 95.5 (95.0-98.0) % ABG O2 Content 17.0 (15.0-23.0) %vol ABG Base Excess 1.9 mm/L ABG Hemoglobin 12.9 (12.0-16.0) g/dL ABG Oxyhemoglobin 94.0 % ABG Carboxyhemoglobin 1.1 (0.0-1.6) % ABG Methemoglobin 0.5 % Estuardo Test Pass O2 Delivery Device Nasal cannula Oxygen Flow Rate L Sodium (140-148) mmol/L Potassium (3.6-5.2) mmol/L Chloride (100-108) mmol/L Carbon Dioxide (21-32) mmol/L Anion Gap (5.0-14.0) mmol/L BUN (7-18) mg/dL Creatinine (0.6-1.0) mg/dL Est Cr Clr Drug Dosing mL/min Estimated GFR (MDRD) (>60) Glucose (74-106) mg/dL Lactic Acid (0.4-2.0) mmol/L Calcium (8.5-10.1) mg/dL Total Bilirubin (0.2-1.0) mg/dL AST (15-37) U/L ALT (12-78) U/L Alkaline Phosphatase (46-116) U/L C-Reactive Protein 0.94 H (0.0-0.3) mg/dL NT-Pro-B Natriuret Pep 52098 H (5-450) pg/mL Total Protein (6.4-8.2) g/dL Albumin (3.4-5.0) g/dL Globulin (2.3-3.5) g/dL Albumin/Globulin Ratio (1.2-2.2) Urine Color Urine Appearance Urine pH (4.5-8.0) Ur Specific [place] (1.008-1.030) Urine Protein (NEGATIVE) mg/dL Urine Glucose (UA) (NEGATIVE) mg/dL Urine Ketones (NEGATIVE) mg/dL Urine Occult Blood (NEGATIVE) Urine Nitrite (NEGATIVE) Urine Bilirubin (NEGATIVE) Urine Urobilinogen (NORMAL) mg/dL Ur Leukocyte Esterase (NEGATIVE) Urine RBC (0-5) Urine WBC (0-5) Ur Epithelial Cells Amorphous Sediment Urine Bacteria Urine Mucus 12/31/17 Range/Units 19:17 WBC (4.5-11.0) K/uL RBC (3.30-5.50) M/uL Hgb (12.0-15.0) g/dL Hct (36.0-48.0) % MCV (80-98) fL MCH (27-31) pg MCHC (32-36) % Plt Count (150-400) K/uL Neut % (Auto) (36-66) % Lymph % (Auto) (24-44) % [place] % (Auto) (2-6) % Eos % (Auto) (2-4) % Baso % (Auto) (0-1) % Puncture Site ABG pH (7.350-7.450) ABG pCO2 (35.0-42.0) mmHg ABG pO2 (75.0-100.0) mmHg ABG HCO3 (22.0-26.0) mmol/L ABG Total CO2 (21.0-25.0) mmol/L ABG O2 Saturation (95.0-98.0) % ABG O2 Content (15.0-23.0) %vol ABG Base Excess mm/L ABG Hemoglobin (12.0-16.0) g/dL ABG Oxyhemoglobin % ABG Carboxyhemoglobin (0.0-1.6) % ABG Methemoglobin % Estuardo Test O2 Delivery Device Oxygen Flow Rate L Sodium (140-148) mmol/L Potassium (3.6-5.2) mmol/L Chloride (100-108) mmol/L Carbon Dioxide (21-32) mmol/L Anion Gap (5.0-14.0) mmol/L BUN (7-18) mg/dL Creatinine (0.6-1.0) mg/dL Est Cr Clr Drug Dosing mL/min Estimated GFR (MDRD) (>60) Glucose (74-106) mg/dL Lactic Acid (0.4-2.0) mmol/L Calcium (8.5-10.1) mg/dL Total Bilirubin (0.2-1.0) mg/dL AST (15-37) U/L ALT (12-78) U/L Alkaline Phosphatase (46-116) U/L C-Reactive Protein (0.0-0.3) mg/dL NT-Pro-B Natriuret Pep (5-450) pg/mL Total Protein (6.4-8.2) g/dL Albumin (3.4-5.0) g/dL Globulin (2.3-3.5) g/dL Albumin/Globulin Ratio (1.2-2.2) Urine Color Yellow Urine Appearance Cloudy Urine pH 5.0 (4.5-8.0) Ur Specific [place] 1.025 (1.008-1.030) Urine Protein Trace (NEGATIVE) mg/dL Urine Glucose (UA) Normal (NEGATIVE) mg/dL Urine Ketones Negative (NEGATIVE) mg/dL Urine Occult Blood Negative (NEGATIVE) Urine Nitrite Negative (NEGATIVE) Urine Bilirubin Small (NEGATIVE) Urine Urobilinogen Normal (NORMAL) mg/dL Ur Leukocyte Esterase Negative (NEGATIVE) Urine RBC 0-5 (0-5) Urine WBC 20-30 H (0-5) Ur Epithelial Cells Few Amorphous Sediment Not seen Urine Bacteria Many Urine Mucus Rare Result Diagrams: 12/31/17 18:40 12/31/17 18:29 - Problem List (1) Urinary tract infection SNOMED Code(s): 22420322 ICD Code: N39.0 - URINARY TRACT INFECTION, SITE NOT SPECIFIED Status: Acute Priority: Low Current Visit: Yes Qualifiers: Urinary tract infection type: site unspecified Hematuria presence: without hematuria Qualified Code(s): N39.0 - Urinary tract infection, site not specified (2) CHF (congestive heart failure) SNOMED Code(s): 10926476 ICD Code: I50.9 - HEART FAILURE, UNSPECIFIED Status: Acute Priority: High Current Visit: Yes Qualifiers: Heart failure type: diastolic Heart failure chronicity: acute on chronic Qualified Code(s): I50.33 - Acute on chronic diastolic (congestive) heart failure (3) Pneumonia SNOMED Code(s): 186396739 ICD Code: J18.9 - PNEUMONIA, UNSPECIFIED ORGANISM Status: Acute Priority : High Current Visit: Yes Qualifiers: Aspiration pneumonia type: unspecified Laterality: bilateral Problem List Initiated/Reviewed/Updated: Yes Orders Last 24hrs: Active Orders 24 hr Category Date Time Status Patient Status Manage Transfer [TRANSFER] Routine ADT 12/31/17 20:44 Ordered EKG Documentation Completion [RC] ASDIRECTED Care 12/31/17 19:24 Active Reynolds Catheter Insertion [Insert Urinary Catheter] [OM. Care 12/31/17 19:30 Ordered PC] Q24H RT Aerosol Therapy [RC] ASDIRECTED Care 12/31/17 18:46 Active Urinary Catheter Assessment [RC] ASDIRECTED Care 12/31/17 19:25 Active Chest 1V Frontal [CR] Stat Exams 12/31/17 18:31 Taken CULTURE BLOOD [BC] Urgent Lab 12/31/17 18:50 Received CULTURE BLOOD [BC] Urgent Lab 12/31/17 18:55 Received CULTURE URINE [RM] Stat Lab 12/31/17 20:00 Received Sodium Chloride 0.9% [Saline Flush] Med 12/31/17 18:47 Active 10 ml FLUSH ASDIRECTED PRN Blood Culture x2 Reflex Set [OM.PC] Urgent Oth 12/31/17 18:32 Ordered Saline Lock Insert [OM.PC] Routine Oth 12/31/17 18:47 Ordered Resuscitation Status Routine Resus Stat 12/31/17 20:46 Ordered EKG 12 Lead [EK] Routine Ther 12/31/17 19:24 Ordered Medication Orders Sodium Chloride (Saline Flush) 10 ml FLUSH ASDIRECTED PRN PRN Reason: Keep Vein Open Last Admin: 12/31/17 19:14 Dose: 10 ml Assessment/Plan Comment:: ASSESSMENT / PLAN -Mrs. Petty arrived with sob and difficulty sleeping at night. She states this started last night and has gotten progressively worse. She has not had chest pain. She has noted increased swelling in her ankles and legs. She ran out of her Lasix about 5 days ago and didn't realize she needed to refill this medication. Onset: sob started yesterday. Associated Symptoms: Reports: Cough, Fever/Chills, Shortness of Breath, lack of appetite, poor sleep x 2 nights. Imaging: chest xray shows diffuse congestion. She does have a fever but no elevated wbc. Her Pro-BNP is greater than 13,000, given 60 mg of Lasix IV. Reynolds catheter was inserted, urinary output at 500 ml clear yellow urine. plan to admit to Hospital for further care and treatment Condition: Fair Clinical Impression: CHF, Pneumonia, UTI Pneumonia -Admit to [address] [place] [address] for further monitoring -saline lock -IV Antibiotic; Rocephin 1 gram IV every 24 hours -IV Zithromax 500mg every 24 hours -Advise to notify nurses of any chest pain or other symptoms -blood cultures x2 pending -And a.m. labs: CBC, BMP CHF, diastolic dysfunction -IV Lasix 60 mg given in ER, will reassess in am -oxygen to keep sat greater than 95% -telemetry -saline lock IV -Reynolds catheter for strict I&O -continue home medication -am labs Pro-BNP -imaging repeat Chest Xray in am Urinary Tract Infection -Rocephin 1 gram IV every 24 hours -urine culture pending Maintenance issues -Orders home meds: ordered -Nutrition: 2 gram sodium diet -Reynolds catheter for strict I&O -DVT: SCD -PPI; IV Protonix 40mg daily -[employer]: Sh[employer], no blood or tissue products CODE STATUS: DNR/DNI Admission status: Admit to [address] [place] [address] Admission justification. This patient will be admitted for inpatient services and is medically appropriate meeting medical necessity for inpatient admission as outlined in my documentation. I reasonably expect the patient will require inpatient services that span. Time over 2 midnights. I reasonably expect this patient to be discharged or transferred within 96 hours after admission to the critical [facility] hospital. Disposition: home Primary care provider: Dr. Salguero, [facility] Hospitalist: Dr. Soto
[2017-12-31] MEDS ORDERED: Azithromycin 500 MG in Sodium Chloride 0.9% 250 ML IV SCH (21:00)
[2017-12-31] MEDS ORDERED: oxyCODONE 5 MG Tab PO PRN (21:34)
[2017-12-31] MEDS ORDERED: Docusate Sodium 100 MG Cap PO PRN (21:34)
[2017-12-31] MEDS ORDERED: Albuterol 0.083% 2.5 MG/3 ML Neb Soln NEB PRN (21:34)
[2017-12-31] MEDS ORDERED: Acetaminophen 325 MG Tab PO PRN (21:34)
[2017-12-31] MEDS ORDERED: Morphine 2 MG/ML Syringe IVPUSH PRN (21:34)
[2017-12-31] MEDS ORDERED: Albuterol/Ipratropium 3.0-0.5 MG/3 ML Neb Soln NEB PRN (21:34)
[2017-12-31] MEDS ORDERED: Pantoprazole 40 MG Vial IVPUSH SCH (21:34)
[2017-12-31] MEDS ORDERED: Ondansetron 4 MG Tab.DIS PO PRN (21:34)
[2017-12-31] MEDS ORDERED: Ondansetron 4 MG/2 ML SDV IV PRN (21:34)
[2017-12-31] MEDS ORDERED: Bisacodyl 5 MG Tab PO PRN (21:34)
[2017-12-31] MEDS ORDERED: LORazepam 2 MG/ML SDV IV PRN (21:34)
[2017-12-31] MEDS: Losartan 50 MG Tab PO SCH (22:39)
--- NOTE | 2018-01-01 08:30 | CR ---
CHEST: Portable CLINICAL HISTORY:CHF COMPARISON:2017 FINDINGS: The heart is enlarged. Pulmonary vascularity appears cephalized. There are atherosclerotic changes in the aorta.There is diffuse interstitial prominence. This is been present on 2 prior studi es. There is some ill-definition left hemidiaphragm. Superimposed effusion or infiltrate is not exclu ded Impression: Cardiomegaly with vascular cephalization may represent some pulmonary venous hypertension Moderate diffuse interstitial prominence similar to prior studies. Much of this is likely pulmonary f ibrosis but, superimposed interstitial edema from CHF is not excluded Minimal left effusion or superimposed left lower lobe infiltrate is not excluded
[2018-01-01] MEDS: Aspirin 81 MG Tab.EC PO SCH (08:35)
[2018-01-01] MEDS: predniSONE 10 MG Tab PO SCH (08:35)
[2018-01-01] MEDS: Clopidogrel 75 MG Tab PO SCH (08:35)
--- NOTE | 2018-01-01 09:23 | CR ---
CHEST: Portable CLINICAL HISTORY:CHF COMPARISON:12/31/2017 FINDINGS: Heart is enlarged. Vascular areas cephalized. There is persistent diffuse interstitial prom inence. This is actually increased since prior study. There is some superimposed density in the left lower lobe which is also increased since prior study. Impression: Increased interstitial markings and increasing perihilar densities suggestive of progress ing CHF. This is superimposed over interstitial fibrosis
[2018-01-01] MEDS: Sodium Chloride 0.9% 10 ML Syringe FLUSH PRN (09:43)
[2018-01-01] MEDS ORDERED: Furosemide 20 MG/2 ML VIAL IVPUSH ONE ×2 (10:00→16:00)
--- NOTE | 2018-01-01 13:10 | PCM.PN ---
- General Info Date of Service: 01/01/18 Functional Status: Reports: Pain Controlled, Tolerating Diet - Review of Systems General: Reports: Weakness Pulmonary: Reports: Shortness of Breath Systems Review Comment:: there were no acute events overnight. She reports that her breathing is a little bit better today but she still feels fairly short of breath. She was able to get some sleep last night which she has not been able to do for several nights. She does not report any chest pain. Appetite is okay. She does get short of breath with activity. - Patient Data Vitals - Most Recent: Last Vital Signs Temp 35.8 C 01/01/18 11:11 Pulse 95 01/01/18 11:00 Resp 24 H 01/01/18 11:00 BP 148/80 H 01/01/18 11:00 Pulse Ox 97 01/01/18 11:00 Weight - Most Recent: 54.703 kg I&O - Last 24 Hours: Intake & Output 12/31/17 01/01/18 01/01/18 22:59 06:59 14:59 Intake Total 1320 Output Total 800 1425 Balance -800 -105 Lab Results Last 24 Hours: Laboratory Results - last 24 hr 12/31/17 12/31/17 12/31/17 Range/Units 16:40 18:29 18:40 WBC 6.7 (4.5-11.0) K/uL RBC 4.66 (3.30-5.50) M/uL Hgb 12.8 (12.0-15.0) g/dL Hct 39.0 (36.0-48.0) % MCV 84 (80-98) fL MCH 28 (27-31) pg MCHC 33 (32-36) % Plt Count 278 (150-400) K/uL Neut % (Auto) 65 (36-66) % Lymph % (Auto) 23 L (24-44) % Greer % (Auto) 9 H (2-6) % Eos % (Auto) 3 (2-4) % Baso % (Auto) 0 (0-1) % Puncture Site ABG pH (7.350-7.450) ABG pCO2 (35.0-42.0) mmHg ABG pO2 (75.0-100.0) mmHg ABG HCO3 (22.0-26.0) mmol/L ABG Total CO2 (21.0-25.0) mmol/L ABG O2 Saturation (95.0-98.0) % ABG O2 Content (15.0-23.0) %vol ABG Base Excess mm/L ABG Hemoglobin (12.0-16.0) g/dL ABG Oxyhemoglobin % ABG Carboxyhemoglobin (0.0-1.6) % ABG Methemoglobin % Estuardo Test O2 Delivery Device Oxygen Flow Rate L Sodium 131 L (140-148) mmol/L Potassium 4.2 (3.6-5.2) mmol/L Chloride 95 L (100-108) mmol/L Carbon Dioxide 29 (21-32) mmol/L Anion Gap 11.2 (5.0-14.0) mmol/L BUN 21 H (7-18) mg/dL Creatinine 1.1 H (0.6-1.0) mg/dL Est Cr Clr Drug Dosing 26.37 mL/min Estimated GFR (MDRD) 47 L (>60) Glucose 121 H (74-106) mg/dL Lactic Acid 2.0 (0.4-2.0) mmol/L Calcium 8.7 (8.5-10.1) mg/dL Total Bilirubin 0.5 (0.2-1.0) mg/dL AST 21 (15-37) U/L ALT 19 (12-78) U/L Alkaline Phosphatase 67 (46-116) U/L C-Reactive Protein (0.0-0.3) mg/dL NT-Pro-B Natriuret Pep (5-450) pg/mL Total Protein 6.4 (6.4-8.2) g/dL Albumin 2.9 L (3.4-5.0) g/dL Globulin 3.5 (2.3-3.5) g/dL Albumin/Globulin Ratio 0.8 L (1.2-2.2) Urine Color Urine Appearance Urine pH (4.5-8.0) Ur Specific [place] (1.008-1.030) Urine Protein (NEGATIVE) mg/dL Urine Glucose (UA) (NEGATIVE) mg/dL Urine Ketones (NEGATIVE) mg/dL Urine Occult Blood (NEGATIVE) Urine Nitrite (NEGATIVE) Urine Bilirubin (NEGATIVE) Urine Urobilinogen (NORMAL) mg/dL Ur Leukocyte Esterase (NEGATIVE) Urine RBC (0-5) Urine WBC (0-5) Ur Epithelial Cells Amorphous Sediment Urine Bacteria Urine Mucus 12/31/17 12/31/17 12/31/17 Range/Units 18:40 18:45 18:49 WBC (4.5-11.0) K/uL RBC (3.30-5.50) M/uL Hgb (12.0-15.0) g/dL Hct (36.0-48.0) % MCV (80-98) fL MCH (27-31) pg MCHC (32-36) % Plt Count (150-400) K/uL Neut % (Auto) (36-66) % Lymph % (Auto) (24-44) % Greer % (Auto) (2-6) % Eos % (Auto) (2-4) % Baso % (Auto) (0-1) % Puncture Site Rt radial ABG pH 7.463 H (7.350-7.450) ABG pCO2 35.3 (35.0-42.0) mmHg ABG pO2 74.2 L (75.0-100.0) mmHg ABG HCO3 24.9 (22.0-26.0) mmol/L ABG Total CO2 22.0 (21.0-25.0) mmol/L ABG O2 Saturation 95.5 (95.0-98.0) % ABG O2 Content 17.0 (15.0-23.0) %vol ABG Base Excess 1.9 mm/L ABG Hemoglobin 12.9 (12.0-16.0) g/dL ABG Oxyhemoglobin 94.0 % ABG Carboxyhemoglobin 1.1 (0.0-1.6) % ABG Methemoglobin 0.5 % Estuardo Test Pass O2 Delivery Device Nasal cannula Oxygen Flow Rate L Sodium (140-148) mmol/L Potassium (3.6-5.2) mmol/L Chloride (100-108) mmol/L Carbon Dioxide (21-32) mmol/L Anion Gap (5.0-14.0) mmol/L BUN (7-18) mg/dL Creatinine (0.6-1.0) mg/dL Est Cr Clr Drug Dosing mL/min Estimated GFR (MDRD) (>60) Glucose (74-106) mg/dL Lactic Acid (0.4-2.0) mmol/L Calcium (8.5-10.1) mg/dL Total Bilirubin (0.2-1.0) mg/dL AST (15-37) U/L ALT (12-78) U/L Alkaline Phosphatase (46-116) U/L C-Reactive Protein 0.94 H (0.0-0.3) mg/dL NT-Pro-B Natriuret Pep 15552 H (5-450) pg/mL Total Protein (6.4-8.2) g/dL Albumin (3.4-5.0) g/dL Globulin (2.3-3.5) g/dL Albumin/Globulin Ratio (1.2-2.2) Urine Color Urine Appearance Urine pH (4.5-8.0) Ur Specific [place] (1.008-1.030) Urine Protein (NEGATIVE) mg/dL Urine Glucose (UA) (NEGATIVE) mg/dL Urine Ketones (NEGATIVE) mg/dL Urine Occult Blood (NEGATIVE) Urine Nitrite (NEGATIVE) Urine Bilirubin (NEGATIVE) Urine Urobilinogen (NORMAL) mg/dL Ur Leukocyte Esterase (NEGATIVE) Urine RBC (0-5) Urine WBC (0-5) Ur Epithelial Cells Amorphous Sediment Urine Bacteria Urine Mucus 12/31/17 01/01/18 01/01/18 Range/Units 19:17 06:01 06:01 WBC 5.6 (4.5-11.0) K/uL RBC 4.15 (3.30-5.50) M/uL Hgb 11.7 L (12.0-15.0) g/dL Hct 35.2 L (36.0-48.0) % MCV 85 (80-98) fL MCH 28 (27-31) pg MCHC 33 (32-36) % Plt Count 241 (150-400) K/uL Neut % (Auto) 59 (36-66) % Lymph % (Auto) 25 (24-44) % Greer % (Auto) 10 H (2-6) % Eos % (Auto) 6 H (2-4) % Baso % (Auto) 1 (0-1) % Puncture Site ABG pH (7.350-7.450) ABG pCO2 (35.0-42.0) mmHg ABG pO2 (75.0-100.0) mmHg ABG HCO3 (22.0-26.0) mmol/L ABG Total CO2 (21.0-25.0) mmol/L ABG O2 Saturation (95.0-98.0) % ABG O2 Content (15.0-23.0) %vol ABG Base Excess mm/L ABG Hemoglobin (12.0-16.0) g/dL ABG Oxyhemoglobin % ABG Carboxyhemoglobin (0.0-1.6) % ABG Methemoglobin % Estuardo Test O2 Delivery Device Oxygen Flow Rate L Sodium (140-148) mmol/L Potassium (3.6-5.2) mmol/L Chloride (100-108) mmol/L Carbon Dioxide (21-32) mmol/L Anion Gap (5.0-14.0) mmol/L BUN (7-18) mg/dL Creatinine (0.6-1.0) mg/dL Est Cr Clr Drug Dosing mL/min Estimated GFR (MDRD) (>60) Glucose (74-106) mg/dL Lactic Acid (0.4-2.0) mmol/L Calcium (8.5-10.1) mg/dL Total Bilirubin (0.2-1.0) mg/dL AST (15-37) U/L ALT (12-78) U/L Alkaline Phosphatase (46-116) U/L C-Reactive Protein (0.0-0.3) mg/dL NT-Pro-B Natriuret Pep 9670 H (5-450) pg/mL Total Protein (6.4-8.2) g/dL Albumin (3.4-5.0) g/dL Globulin (2.3-3.5) g/dL Albumin/Globulin Ratio (1.2-2.2) Urine Color Yellow Urine Appearance Cloudy Urine pH 5.0 (4.5-8.0) Ur Specific [place] 1.025 (1.008-1.030) Urine Protein Trace (NEGATIVE) mg/dL Urine Glucose (UA) Normal (NEGATIVE) mg/dL Urine Ketones Negative (NEGATIVE) mg/dL Urine Occult Blood Negative (NEGATIVE) Urine Nitrite Negative (NEGATIVE) Urine Bilirubin Small (NEGATIVE) Urine Urobilinogen Normal (NORMAL) mg/dL Ur Leukocyte Esterase Negative (NEGATIVE) Urine RBC 0-5 (0-5) Urine WBC 20-30 H (0-5) Ur Epithelial Cells Few Amorphous Sediment Not seen Urine Bacteria Many Urine Mucus Rare 01/01/18 Range/Units 06:01 WBC (4.5-11.0) K/uL RBC (3.30-5.50) M/uL Hgb (12.0-15.0) g/dL Hct (36.0-48.0) % MCV (80-98) fL MCH (27-31) pg MCHC (32-36) % Plt Count (150-400) K/uL Neut % (Auto) (36-66) % Lymph % (Auto) (24-44) % Greer % (Auto) (2-6) % Eos % (Auto) (2-4) % Baso % (Auto) (0-1) % Puncture Site ABG pH (7.350-7.450) ABG pCO2 (35.0-42.0) mmHg ABG pO2 (75.0-100.0) mmHg ABG HCO3 (22.0-26.0) mmol/L ABG Total CO2 (21.0-25.0) mmol/L ABG O2 Saturation (95.0-98.0) % ABG O2 Content (15.0-23.0) %vol ABG Base Excess mm/L ABG Hemoglobin (12.0-16.0) g/dL ABG Oxyhemoglobin % ABG Carboxyhemoglobin (0.0-1.6) % ABG Methemoglobin % Estuardo Test O2 Delivery Device Oxygen Flow Rate L Sodium 133 L (140-148) mmol/L Potassium 4.3 (3.6-5.2) mmol/L Chloride 98 L (100-108) mmol/L Carbon Dioxide 32 (21-32) mmol/L Anion Gap 7.3 (5.0-14.0) mmol/L BUN 20 H (7-18) mg/dL Creatinine 1.1 H (0.6-1.0) mg/dL Est Cr Clr Drug Dosing 26.37 mL/min Estimated GFR (MDRD) 47 L (>60) Glucose 85 (74-106) mg/dL Lactic Acid (0.4-2.0) mmol/L Calcium 8.5 (8.5-10.1) mg/dL Total Bilirubin (0.2-1.0) mg/dL AST (15-37) U/L ALT (12-78) U/L Alkaline Phosphatase (46-116) U/L C-Reactive Protein (0.0-0.3) mg/dL NT-Pro-B Natriuret Pep (5-450) pg/mL Total Protein (6.4-8.2) g/dL Albumin (3.4-5.0) g/dL Globulin (2.3-3.5) g/dL Albumin/Globulin Ratio (1.2-2.2) Urine Color Urine Appearance Urine pH (4.5-8.0) Ur Specific [place] (1.008-1.030) Urine Protein (NEGATIVE) mg/dL Urine Glucose (UA) (NEGATIVE) mg/dL Urine Ketones (NEGATIVE) mg/dL Urine Occult Blood (NEGATIVE) Urine Nitrite (NEGATIVE) Urine Bilirubin (NEGATIVE) Urine Urobilinogen (NORMAL) mg/dL Ur Leukocyte Esterase (NEGATIVE) Urine RBC (0-5) Urine WBC (0-5) Ur Epithelial Cells Amorphous Sediment Urine Bacteria Urine Mucus Cruzito Results Last 24 Hours: Microbiology 12/31/17 20:00 Urine Culture - Preliminary Urine, Bladder Med Orders - Current: Current Medications Acetaminophen (Tylenol) 650 mg PO Q4H PRN PRN Reason: Pain (Mild 1-3)/fever Albuterol (Proventil Neb Soln) 2.5 mg NEB Q4H PRN PRN Reason: Shortness Of Breath/wheezing Albuterol/Ipratropium (Duoneb 3.0-0.5 Mg/3 Ml) 3 ml NEB QID PRN PRN Reason: Shortness Of Breath/wheezing Aspirin (Halfprin) 81 mg PO DAILY [facility] Last Admin: 01/01/18 08:35 Dose: 81 mg Bisacodyl (Dulcolax) 5 mg PO DAILY PRN PRN Reason: Constipation Clopidogrel Bisulfate (Plavix) 75 mg PO DAILY [facility] Last Admin: 01/01/18 08:35 Dose: 75 mg Docusate Sodium (Colace) 100 mg PO BID PRN PRN Reason: Constipation Azithromycin 500 mg/ Sodium (Chloride) 250 mls @ 250 mls/hr IV Q24H [facility] Last Admin: 12/31/17 22:06 Dose: 250 mls/hr Ceftriaxone Sodium 1 gm/ (Sodium Chloride) 50 mls @ 100 mls/hr IV Q24H [facility] Lorazepam (Ativan) 0.5 - 1 mg IV Q6H PRN PRN Reason: Nausea/Vomiting Losartan Potassium (Cozaar) 50 mg PO BEDTIME [facility] Last Admin: 12/31/17 22:39 Dose: 50 mg Morphine Sulfate (Morphine) 2 mg IVPUSH Q2H PRN PRN Reason: Pain (severe 7-10) Ondansetron HCl (Zofran Odt) 4 mg PO Q6H PRN PRN Reason: Nausea able to take PO Ondansetron HCl (Zofran) 4 mg IV Q4H PRN PRN Reason: Nausea/Vomiting Oxycodone HCl (Oxycodone) 5 mg PO Q4H PRN PRN Reason: Pain (moderate 4-6) Pantoprazole Sodium (Protonix Iv) 40 mg IVPUSH BEDTIME [facility] Last Admin: 12/31/17 22:14 Dose: 40 mg Prednisone (Prednisone) 10 mg PO DAILY [facility] Last Admin: 01/01/18 08:35 Dose: 10 mg Sodium Chloride (Saline Flush) 10 ml FLUSH ASDIRECTED PRN PRN Reason: Keep Vein Open Last Admin: 01/01/18 09:43 Dose: 10 ml Discontinued Medications Acetaminophen (Tylenol) 650 mg PO NOW ONE Stop: 12/31/17 19:25 Last Admin: 12/31/17 19:42 Dose: 650 mg Albuterol (Proventil Neb Soln) 2.5 mg NEB ONETIME ONE Stop: 12/31/17 18:47 Last Admin: 12/31/17 19:11 Dose: 2.5 mg Furosemide (Lasix) 60 mg IVPUSH ONETIME ONE Stop: 12/31/17 18:58 Last Admin: 12/31/17 19:12 Dose: 60 mg Furosemide (Lasix) 20 mg IVPUSH ONETIME ONE Stop: 01/01/18 10:01 Last Admin: 01/01/18 09:41 Dose: 20 mg Ceftriaxone Sodium 1 gm/ (Sodium Chloride) 50 mls @ 100 mls/hr IV ONETIME ONE Stop: 12/31/17 20:46 Last Admin: 12/31/17 21:22 Dose: 100 mls/hr Ceftriaxone Sodium 1 gm/ (Sodium Chloride) 50 mls @ 100 mls/hr IV Q24H [facility] - Exam Quality Assessment: Supplemental Oxygen General: Alert, Oriented, Cooperative, No Acute Distress Lungs: Crackles (diffuse crackles bilaterally ). No: Normal Respiratory Effort (increased work of breathing ) Cardiovascular: Regular Rate, Regular Rhythm, Murmurs GI/Abdominal Exam: Soft, No Distention Extremities: No Pedal Edema Skin: Warm, Dry Psy/Mental Status: Alert, Normal Affect - Problem List Review Problem List Initiated/Reviewed/Updated: Yes - My Orders Last 24 Hours: My Active Orders 01/01/18 13:08 Discontinue Telemetry Monitoring [Cardiac Monitoring Discontinue] [RC] Click to Edit 01/01/18 16:00 Furosemide [Lasix] 20 mg IVPUSH ONETIME ONE 01/01/18 21:00 Azithromycin [Zithromax] 500 mg PO BEDTIME 01/02/18 05:00 BASIC METABOLIC PANEL,BMP [CHEM] Timed CBC W/O DIFF,HEMOGRAM [HEME] Timed (1) 01/02/18 09:00 Furosemide [Lasix] 20 mg IVPUSH DAILY - Plan Plan:: ASSESSMENT / PLAN CHF, diastolic dysfunction - acute decompensation with hypoxia, likely a result of her urinary tract infection as discussed below. I don't think there is a significant component of pneumonia at this time. She has been empirically covered with an abnormal and somewhat difficult to interpret chest x-ray. -furosemide 20 mg twice daily today and reassess tomorrow morning -oxygen to keep sat greater than 92% -discontinue telemetry -saline lock IV -remove Reynolds catheter -continue medical management Acute cystitis - urine strongly suggestive of infection and patient does have symptoms. Urine culture growing a gram-negative markus identification is pending. -ceftriaxone 1 gram IV every 24 hours -follow-up urine culture Stage IV chronic kidney disease - creatinine at baseline at this time. This will need close monitoring with diuresis in the setting of heart failure. Maintenance issues -Nutrition: 2 gram sodium diet -Reynolds catheter - will removed today -DVT: SCD -PPI; PPI -Jew: Shinto, no blood or tissue products Disposition: I would anticipate discharge to home, possibly with home care after the hospital stay Primary care provider: Dr. Salguero, [facility] Jared Soto M.D.
[2018-01-01] MEDS: Azithromycin 250 MG Tab PO SCH (20:13)
[2018-01-01] MEDS: Losartan 50 MG Tab PO SCH (20:16)
[2018-01-01] MEDS: cefTRIAXone 1 GM in Sodium Chloride 0.9% 50 ML IV SCH (20:16)
[2018-01-01] MEDS ORDERED: cefTRIAXone 1 GM in Sodium Chloride 0.9% 50 ML IV SCH (21:00)
[2018-01-01] MEDS ORDERED: diphenhydrAMINE 25 MG Cap PO PRN (22:43)
--- NOTE | 2018-01-01 23:17 | PCM.SN ---
- Free Text/Narrative Note: time 22:43 call from 2 [facility], request medication for sleep A: insomnia P: order Benadryl 25 mg po at hs prn sleep
[2018-01-02] MEDS ORDERED: Furosemide 20 MG/2 ML VIAL IVPUSH SCH (09:00)
[2018-01-02] MEDS: Clopidogrel 75 MG Tab PO SCH (09:16)
[2018-01-02] MEDS: Aspirin 81 MG Tab.EC PO SCH (09:16)
[2018-01-02] MEDS: predniSONE 10 MG Tab PO SCH (09:16)
--- NOTE | 2018-01-02 13:49 | PCM.PN ---
- General Info Date of Service: 01/02/18 Subjective Update: There were no acute events overnight. Shortness of breath is a little better today with diuresis overnight. Still feels short of breath, especially when she talks or walks. She did desaturate with walking. There was some concern for bradycardia while she was walking and telemetry will be reinstituted. We have not captured any bradycardia with other vital sign checks. Urine culture is growing Enterobacter sensitive to the ceftriaxone. Functional Status: Reports: Pain Controlled, Tolerating Diet - Review of Systems General: Reports: Weakness Pulmonary: Reports: Shortness of Breath - Patient Data Vitals - Most Recent: Last Vital Signs Temp 36.6 C 01/02/18 13:16 Pulse 94 01/02/18 13:16 Resp 18 01/02/18 13:16 BP 146/78 H 01/02/18 13:16 Pulse Ox 98 01/02/18 13:16 Weight - Most Recent: 54.703 kg I&O - Last 24 Hours: Intake & Output 01/01/18 01/02/18 01/02/18 22:59 06:59 14:59 Intake Total 410 720 Output Total 300 200 950 Balance 110 -200 -230 Lab Results Last 24 Hours: Laboratory Results - last 24 hr 01/02/18 01/02/18 Range/Units 04:15 04:15 WBC 6.8 (4.5-11.0) K/uL RBC 4.37 (3.30-5.50) M/uL Hgb 12.2 (12.0-15.0) g/dL Hct 36.9 (36.0-48.0) % MCV 84 (80-98) fL MCH 28 (27-31) pg MCHC 33 (32-36) % Plt Count 238 (150-400) K/uL Sodium 133 L (140-148) mmol/L Potassium 4.0 (3.6-5.2) mmol/L Chloride 97 L (100-108) mmol/L Carbon Dioxide 33 H (21-32) mmol/L Anion Gap 7.0 (5.0-14.0) mmol/L BUN 24 H (7-18) mg/dL Creatinine 0.9 (0.6-1.0) mg/dL Est Cr Clr Drug Dosing 32.23 mL/min Estimated GFR (MDRD) 59 L (>60) Glucose 85 (74-106) mg/dL Calcium 8.2 L (8.5-10.1) mg/dL Cruzito Results Last 24 Hours: Microbiology 12/31/17 20:00 Urine Culture - Final Urine, Bladder Enterobacter Aerogenes 12/31/17 18:55 Aerobic Blood Culture - Preliminary Blood - Venous - Iv Start NO GROWTH AFTER 1 DAY Anaerobic Blood Culture - Preliminary NO GROWTH AFTER 1 DAY 12/31/17 18:50 Aerobic Blood Culture - Preliminary Blood - Venous - Iv Start NO GROWTH AFTER 1 DAY Anaerobic Blood Culture - Preliminary NO GROWTH AFTER 1 DAY Med Orders - Current: Current Medications Acetaminophen (Tylenol) 650 mg PO Q4H PRN PRN Reason: Pain (Mild 1-3)/fever Albuterol (Proventil Neb Soln) 2.5 mg NEB Q4H PRN PRN Reason: Shortness Of Breath/wheezing Albuterol/Ipratropium (Duoneb 3.0-0.5 Mg/3 Ml) 3 ml NEB QID PRN PRN Reason: Shortness Of Breath/wheezing Aspirin (Halfprin) 81 mg PO DAILY [facility] Last Admin: 01/02/18 09:16 Dose: 81 mg Azithromycin (Zithromax) 500 mg PO BEDTIME [facility] Last Admin: 01/01/18 20:13 Dose: 500 mg Bisacodyl (Dulcolax) 5 mg PO DAILY PRN PRN Reason: Constipation Clopidogrel Bisulfate (Plavix) 75 mg PO DAILY [facility] Last Admin: 01/02/18 09:16 Dose: 75 mg Diphenhydramine HCl (Benadryl) 25 mg PO BEDTIME PRN PRN Reason: Sleep Docusate Sodium (Colace) 100 mg PO BID PRN PRN Reason: Constipation Furosemide (Lasix) 20 mg IVPUSH DAILY [facility] Last Admin: 01/02/18 09:16 Dose: 20 mg Ceftriaxone Sodium 1 gm/ (Sodium Chloride) 50 mls @ 100 mls/hr IV Q24H [facility] Last Admin: 01/01/18 20:16 Dose: 100 mls/hr Lorazepam (Ativan) 0.5 - 1 mg IV Q6H PRN PRN Reason: Nausea/Vomiting Losartan Potassium (Cozaar) 50 mg PO BEDTIME [facility] Last Admin: 01/01/18 20:16 Dose: 50 mg Morphine Sulfate (Morphine) 2 mg IVPUSH Q2H PRN PRN Reason: Pain (severe 7-10) Ondansetron HCl (Zofran Odt) 4 mg PO Q6H PRN PRN Reason: Nausea able to take PO Ondansetron HCl (Zofran) 4 mg IV Q4H PRN PRN Reason: Nausea/Vomiting Oxycodone HCl (Oxycodone) 5 mg PO Q4H PRN PRN Reason: Pain (moderate 4-6) Prednisone (Prednisone) 10 mg PO DAILY [facility] Last Admin: 01/02/18 09:16 Dose: 10 mg Sodium Chloride (Saline Flush) 10 ml FLUSH ASDIRECTED PRN PRN Reason: Keep Vein Open Last Admin: 01/01/18 09:43 Dose: 10 ml Discontinued Medications Acetaminophen (Tylenol) 650 mg PO NOW ONE Stop: 12/31/17 19:25 Last Admin: 12/31/17 19:42 Dose: 650 mg Albuterol (Proventil Neb Soln) 2.5 mg NEB ONETIME ONE Stop: 12/31/17 18:47 Last Admin: 12/31/17 19:11 Dose: 2.5 mg Furosemide (Lasix) 60 mg IVPUSH ONETIME ONE Stop: 12/31/17 18:58 Last Admin: 12/31/17 19:12 Dose: 60 mg Furosemide (Lasix) 20 mg IVPUSH ONETIME ONE Stop: 01/01/18 10:01 Last Admin: 01/01/18 09:41 Dose: 20 mg Furosemide (Lasix) 20 mg IVPUSH ONETIME ONE Stop: 01/01/18 16:01 Last Admin: 01/01/18 17:14 Dose: 20 mg Ceftriaxone Sodium 1 gm/ (Sodium Chloride) 50 mls @ 100 mls/hr IV ONETIME ONE Stop: 12/31/17 20:46 Last Admin: 12/31/17 21:22 Dose: 100 mls/hr Azithromycin 500 mg/ Sodium (Chloride) 250 mls @ 250 mls/hr IV Q24H [facility] Last Admin: 12/31/17 22:06 Dose: 250 mls/hr Ceftriaxone Sodium 1 gm/ (Sodium Chloride) 50 mls @ 100 mls/hr IV Q24H [facility] Pantoprazole Sodium (Protonix Iv) 40 mg IVPUSH BEDTIME [facility] Last Admin: 12/31/17 22:14 Dose: 40 mg - Exam Quality Assessment: No: Supplemental Oxygen General: Alert, Oriented, Cooperative, No Acute Distress Neck: JVD Lungs: Normal Respiratory Effort, Crackles (both bases and mid lung zones) Cardiovascular: Regular Rate, Regular Rhythm, No Murmurs Extremities: No Pedal Edema Skin: Warm, Dry Psy/Mental Status: Alert, Normal Affect - Problem List Review Problem List Initiated/Reviewed/Updated: Yes - My Orders Last 24 Hours: My Active Orders 01/01/18 21:00 Azithromycin [Zithromax] 500 mg PO BEDTIME 01/02/18 09:00 Furosemide [Lasix] 20 mg IVPUSH DAILY 01/02/18 10:48 RT Evaluate for Home Oxygen [RC] Click to Edit 01/02/18 13:48 Furosemide [Lasix] 30 mg IVPUSH ONETIME ONE 01/03/18 05:00 BASIC METABOLIC PANEL,BMP [CHEM] Timed - Plan Plan:: ASSESSMENT / PLAN CHF, diastolic dysfunction - complicated by pulmonary hypertension. Acute decompensation with hypoxia, likely a result of her urinary tract infection as discussed below. I don't think there is a significant component of pneumonia at this time. She has been empirically covered with an abnormal and somewhat difficult to interpret chest x-ray. There was some concern for bradycardia with activity and she will need to be monitored with telemetry. -furosemide 20 mg twice daily today and reassess tomorrow morning -oxygen to keep sat greater than 92% -telemetry -saline lock IV -continue medical management Pulmonary fibrosis - chronic and appears to be stable on follow-up chest x-ray. Likely contributing to her hypoxia. -Supplement oxygen as needed Acute cystitis - urine strongly suggestive of infection and patient does have symptoms. Urine culture growing a gram-negative markus identification is pending. -ceftriaxone 1 gram IV every 24 hours -follow-up urine culture Stage III chronic kidney disease - creatinine now back to baseline with very mild reduction present at the time of admission. Maintenance issues -Nutrition: 2 gram sodium diet -Reynolds catheter - will removed today -DVT: SCD -PPI; PPI -Jehovah'S Witness: Orthodox, no blood or tissue products Disposition: I would anticipate discharge to home, probably with home care after the hospital stay Jared Soto M.D.
[2018-01-02] MEDS ORDERED: Furosemide 40 MG/4 ML VIAL IVPUSH ONE (14:00)
[2018-01-02] MEDS: cefTRIAXone 1 GM in Sodium Chloride 0.9% 50 ML IV SCH (21:11)
[2018-01-02] MEDS: Azithromycin 250 MG Tab PO SCH (21:12)
[2018-01-02] MEDS: Losartan 50 MG Tab PO SCH (21:13)
[2018-01-03] MEDS: Aspirin 81 MG Tab.EC PO SCH (08:38)
[2018-01-03] MEDS: predniSONE 10 MG Tab PO SCH (08:39)
[2018-01-03] MEDS: Clopidogrel 75 MG Tab PO SCH (08:39)
[2018-01-03] MEDS ORDERED: Furosemide 20 MG Tab PO SCH (09:00)
[2018-01-03 11:02] VITALS: BP 145/85
--- NOTE | 2018-01-03 12:49 | PCM.DCSUM1 ---
Discharge Summary - Hospital Course Brief History: 87-year-old female with history of pulmonary fibrosis and diastolic congestive heart failure who presented with shortness of breath. She was admitted for management of congestive heart failure with possible component of pneumonia. Diagnosis: Stroke: No - Discharge Data Discharge Date: 01/03/18 Discharge Disposition: Home, [place] [id number] Condition: Good - Discharge Diagnosis/Problem(s) (1) Urinary tract infection SNOMED Code(s): 71080926 ICD Code: N39.0 - URINARY TRACT INFECTION, SITE NOT SPECIFIED Status: Acute Priority: Low Qualifiers: Urinary tract infection type: site unspecified Hematuria presence: without hematuria Qualified Code(s): N39.0 - Urinary tract infection, site not specified (2) CHF (congestive heart failure) SNOMED Code(s): 94274549 ICD Code: I50.9 - HEART FAILURE, UNSPECIFIED Status: Acute Priority: High Qualifiers: Heart failure type: diastolic Heart failure chronicity: acute on chronic Qualified Code(s): I50.33 - Acute on chronic diastolic (congestive) heart failure (3) Interstitial lung disease SNOMED Code(s): 139390396 ICD Code: J84.9 - INTERSTITIAL PULMONARY DISEASE, UNSPECIFIED Status: Chronic - Patient Summary/Data Hospital Course: Mirna presented to the emergency room with several days of progressive shortness of breath. She had not been taking her furosemide because she had ran out. Workup in the emergency room was suggestive of congestive heart failure with possible superimposed pneumonia complicating her pulmonary fibrosis. She also had evidence for urinary tract infection. She received IV furosemide as well as ceftriaxone and azithromycin and was admitted to the hospital for further management. Over the next couple of days we are able to diuresis her down to what appears to be euvolemic. Her shortness of breath has improved significantly and she no longer has orthopnea or nocturnal dyspnea. She does not have any lower extremity edema. Her kidney function has remained stable. She has not had any fevers during the hospital stay. Her urine culture did grow out Enterobacter which was sensitive to the ceftriaxone. Because it was unclear if she had a superimposed pneumonia or not we have elected to complete treatment for pneumonia. She has improved enough that she is safe for outpatient management but she will be requiring supplemental oxygen at the time of discharge as discussed below. She will need a couple more days of azithromycin and several days of cefdinir. I did refill her prescription for furosemide. She has follow-up scheduled in 3 days. She was interested in home care and a referral was placed to [facility]. I had a [id number] encounter with Mirna today, January 03, 2018. The face -to-face encounter was for home oxygen. On January 02, 2018 Mirna had an oxygen saturation of 88% on room air. She has pulmonary fibrosis as well as diastolic congestive heart failure. I think she would benefit from oxygen at home both at night and with activity to help alleviate her symptoms of dyspnea. - Patient Instructions Diet: Regular Diet as Tolerated Activity: As Tolerated Showering/Bathing: May Shower Notify Provider of: Fever, Increased Pain, Nausea and/or Vomiting Other/Special Instructions: 1. You were in the hospital for management of mild congestive heart failure as well as a urinary tract infection. There is the possibility that you had a mild pneumonia as well. I recommend additional antibiotic therapy with azithromycin taken at bedtime for 2 more doses. Your next dose is due tonight. I also recommend 7 more doses of cefdinir taken twice daily. Your next dose is due tonight. 2. You have qualified for home oxygen and we have completed the necessary paperwork. [facility] will be delivering your equipment this afternoon. 3. I have placed a referral for home health care. They will provide nursing services to ease your transition from the hospital to home. 4. I have provided a prescription for furosemide. You should take 20 mg once daily in the morning. 5. Please seek medical attention if you develop fever greater than 101, you have severe shortness of breath or if you develop significant chest pain. - Discharge Plan *PRESCRIPTION DRUG MONITORING PROGRAM REVIEWED*: Not Applicable *COPY OF PRESCRIPTION DRUG MONITORING REPORT IN PATIENT RICCI: Not Applicable Prescriptions/Med Rec: Azithromycin 500 mg PO BEDTIME #2 tablet Cefdinir 300 mg PO BID #7 capsule Furosemide [Lasix] 20 mg PO DAILY #30 tablet Home Medications: Home Meds Aspirin [Halfprin] 1 tab PO DAILY 11/08/16 [History] Clopidogrel Bisulfate [Clopidogrel] 1 tab PO DAILY 12/31/17 [History] Losartan [Cozaar] 1 tab PO BEDTIME 12/31/17 [History] predniSONE [Prednisone] 1 tab PO DAILY 12/31/17 [History] Azithromycin 500 mg PO BEDTIME #2 tablet 01/03/18 [Rx] Cefdinir 300 mg PO BID #7 capsule 01/03/18 [Rx] Furosemide [Lasix] 20 mg PO DAILY #30 tablet 01/03/18 [Rx] Patient Handouts: Cefdinir capsules, Urinary Tract Infection, Adult, Easy-to- Read Referrals: Marlyn Albarran MD [Physician] - 01/06/18 11:00 am (f/u as scheduled on Saturday ) - Discharge Summary/Plan Comment DC Time >30 min.: Yes (40 - cord needing home oxygen and home health care) - Patient Data Vitals - Most Recent: Last Vital Signs Temp 36.2 C 01/03/18 11:00 Pulse 100 01/03/18 11:00 Resp 18 01/03/18 11:00 BP 145/85 H 01/03/18 11:00 Pulse Ox 90 L 01/03/18 11:00 Weight - Most Recent: 54.703 kg I&O - Last 24 hours: Intake & Output 01/02/18 01/03/18 01/03/18 22:59 06:59 14:59 Intake Total 50 240 500 Output Total 1000 400 Balance -950 240 100 Lab Results - Last 24 hrs: Laboratory Results - last 24 hr 01/03/18 Range/Units 05:45 Sodium 134 L (140-148) mmol/L Potassium 4.2 (3.6-5.2) mmol/L Chloride 95 L (100-108) mmol/L Carbon Dioxide 37 H (21-32) mmol/L Anion Gap 6.2 (5.0-14.0) mmol/L BUN 23 H (7-18) mg/dL Creatinine 1.1 H (0.6-1.0) mg/dL Est Cr Clr Drug Dosing 26.37 mL/min Estimated GFR (MDRD) 47 L (>60) Glucose 82 (74-106) mg/dL Calcium 8.5 (8.5-10.1) mg/dL GARIMA Results - Last 24 hrs: Microbiology 12/31/17 18:55 Aerobic Blood Culture - Preliminary Blood - Venous - Iv Start NO GROWTH AFTER 2 DAYS Anaerobic Blood Culture - Preliminary NO GROWTH AFTER 2 DAYS 12/31/17 18:50 Aerobic Blood Culture - Preliminary Blood - Venous - Iv Start NO GROWTH AFTER 2 DAYS Anaerobic Blood Culture - Preliminary NO GROWTH AFTER 2 DAYS Med Orders - Current: Current Medications Acetaminophen (Tylenol) 650 mg PO Q4H PRN PRN Reason: Pain (Mild 1-3)/fever Albuterol (Proventil Neb Soln) 2.5 mg NEB Q4H PRN PRN Reason: Shortness Of Breath/wheezing Albuterol/Ipratropium (Duoneb 3.0-0.5 Mg/3 Ml) 3 ml NEB QID PRN PRN Reason: Shortness Of Breath/wheezing Aspirin (Halfprin) 81 mg PO DAILY [facility] Last Admin: 01/03/18 08:38 Dose: 81 mg Azithromycin (Zithromax) 500 mg PO BEDTIME [facility] Last Admin: 01/02/18 21:12 Dose: 500 mg Bisacodyl (Dulcolax) 5 mg PO DAILY PRN PRN Reason: Constipation Clopidogrel Bisulfate (Plavix) 75 mg PO DAILY [facility] Last Admin: 01/03/18 08:39 Dose: 75 mg Diphenhydramine HCl (Benadryl) 25 mg PO BEDTIME PRN PRN Reason: Sleep Last Admin: 01/02/18 21:13 Dose: 25 mg Docusate Sodium (Colace) 100 mg PO BID PRN PRN Reason: Constipation Furosemide (Lasix) 20 mg PO DAILY [facility] Last Admin: 01/03/18 08:42 Dose: 20 mg Ceftriaxone Sodium 1 gm/ (Sodium Chloride) 50 mls @ 100 mls/hr IV Q24H [facility] Last Admin: 01/02/18 21:11 Dose: 100 mls/hr Lorazepam (Ativan) 0.5 - 1 mg IV Q6H PRN PRN Reason: Nausea/Vomiting Losartan Potassium (Cozaar) 50 mg PO BEDTIME [facility] Last Admin: 01/02/18 21:13 Dose: 50 mg Morphine Sulfate (Morphine) 2 mg IVPUSH Q2H PRN PRN Reason: Pain (severe 7-10) Ondansetron HCl (Zofran Odt) 4 mg PO Q6H PRN PRN Reason: Nausea able to take PO Ondansetron HCl (Zofran) 4 mg IV Q4H PRN PRN Reason: Nausea/Vomiting Oxycodone HCl (Oxycodone) 5 mg PO Q4H PRN PRN Reason: Pain (moderate 4-6) Prednisone (Prednisone) 10 mg PO DAILY [facility] Last Admin: 01/03/18 08:39 Dose: 10 mg Sodium Chloride (Saline Flush) 10 ml FLUSH ASDIRECTED PRN PRN Reason: Keep Vein Open Last Admin: 01/01/18 09:43 Dose: 10 ml Discontinued Medications Acetaminophen (Tylenol) 650 mg PO NOW ONE Stop: 12/31/17 19:25 Last Admin: 12/31/17 19:42 Dose: 650 mg Albuterol (Proventil Neb Soln) 2.5 mg NEB ONETIME ONE Stop: 12/31/17 18:47 Last Admin: 12/31/17 19:11 Dose: 2.5 mg Furosemide (Lasix) 60 mg IVPUSH ONETIME ONE Stop: 12/31/17 18:58 Last Admin: 12/31/17 19:12 Dose: 60 mg Furosemide (Lasix) 20 mg IVPUSH ONETIME ONE Stop: 01/01/18 10:01 Last Admin: 01/01/18 09:41 Dose: 20 mg Furosemide (Lasix) 20 mg IVPUSH ONETIME ONE Stop: 01/01/18 16:01 Last Admin: 01/01/18 17:14 Dose: 20 mg Furosemide (Lasix) 20 mg IVPUSH DAILY [facility] Last Admin: 01/02/18 09:16 Dose: 20 mg Furosemide (Lasix) 30 mg IVPUSH ONETIME ONE Stop: 01/02/18 14:01 Last Admin: 01/02/18 15:05 Dose: 30 mg Ceftriaxone Sodium 1 gm/ (Sodium Chloride) 50 mls @ 100 mls/hr IV ONETIME ONE Stop: 12/31/17 20:46 Last Admin: 12/31/17 21:22 Dose: 100 mls/hr Azithromycin 500 mg/ Sodium (Chloride) 250 mls @ 250 mls/hr IV Q24H [facility] Last Admin: 12/31/17 22:06 Dose: 250 mls/hr Ceftriaxone Sodium 1 gm/ (Sodium Chloride) 50 mls @ 100 mls/hr IV Q24H [facility] Pantoprazole Sodium (Protonix Iv) 40 mg IVPUSH BEDTIME [facility] Last Admin: 12/31/17 22:14 Dose: 40 mg - Exam Quality Assessment: Reports: Supplemental Oxygen General: Reports: Alert, Oriented, Cooperative, No Acute Distress Lungs: Reports: Normal Respiratory Effort, Rales (diffuse dry crackles) Cardiovascular: Reports: Regular Rate, Regular Rhythm Extremities: No Pedal Edema Psy/Mental Status: Reports: Alert, Normal Affect
== END 2018-01-03 13:48 | disposition home health service (06) | DRG 291 ==
LOC: JP.ED 18:11 → JP.ICU 20:44 → JP.MS 20:45
PROVIDERS: ADMIT Internal Medicine; ATTEND Internal Medicine
DX: I13.0 Hypertensive heart and chronic kidney disease with heart failure and stage 1 through stage 4 chronic kidney disease, or unspecified chronic kidney disease (principal); I50.33 Acute on chronic diastolic (congestive) heart failure; J18.9 Pneumonia, unspecified organism; N18.4 Chronic kidney disease, stage 4 (severe); N39.0 Urinary tract infection, site not specified; Z66 Do not resuscitate; R06.02 Shortness of breath; I25.10 Atherosclerotic heart disease of native coronary artery without angina pectoris; B96.89 Other specified bacterial agents as the cause of diseases classified elsewhere; I25.2 Old myocardial infarction; J84.10 Pulmonary fibrosis, unspecified; Z99.81 Dependence on supplemental oxygen; Z87.01 Personal history of pneumonia (recurrent); Z95.5 Presence of coronary angioplasty implant and graft; Z79.82 Long term (current) use of aspirin; Z79.52 Long term (current) use of systemic steroids; Z88.1 Allergy status to other antibiotic agents; Z88.0 Allergy status to penicillin; Z88.2 Allergy status to sulfonamides; Z88.8 Allergy status to other drugs, medicaments and biological substances; G47.00 Insomnia, unspecified
CPT/HCPCS: 36415; 36600; 71045 ×2; 80053; 81001; 82803; 83605; 83880; 85025; 86140; 87040 ×2; 87086; 87088; 87186; 93005; 94640; 96374; 99285; A9270; J1940; J7050; 80048; 85027; 96375; C9113; J0456; J0696